=== PATIENT | male | born 2000 | race African-American/Black ===

== ENCOUNTER 2024-05-05 02:38 | Inpatient (IN) | payer OTHER, SELFPAY ==
[2024-05-05] VITALS (10 sets, daily range): BP systolic 91–129; BP diastolic 50–72; BMI 27.4; BMI 26.5
[2024-05-05] MEDS: LOW STRENGTH ASPIRIN 324 MG PO (00:34)
--- NOTE | 2024-05-05 00:34 | ED.GENMED ---
History of Present Illness
General
Chief Complaint: Chest Pain
Source: patient and family
Exam Limitations: none
Time Seen by Provider: 05/05/24 00:34
Nursing documentation reviewed up to this point in time: agreed with
History of Present Illness
History of Present Illness:
Is a 23-year-old male that presents with substernal chest pain radiating to his left side. He states that has been progressively worsening for the last 2 days. Mom has been trying to convince him to come to the emergency department but he has
since used prior to night. Patient did have an upper respiratory infection which has been resolving. Patient denies fever, chills, nausea or vomiting. He does not smoke, drink alcohol, or illicit drugs. Patient denies any family cardiac history.
Patient does not have hypertension or hyperlipidemia. Patient has been getting over URI and has taken Sudafed yesterday for his symptoms.
Vital signs are stable. Patient not hypoxic
Nursing note reviewed. I agree with nursing documentation up to this point in time.
Home Meds and allergies reviewed.
NUMBER AND COMPLEXITY OF PROBLEMS ADDRESSED AT THE ENCOUNTER
� Chronic conditions affecting care: None
� Acute Exacerbation and/or Progression of Chronic Illness:
� Differential Diagnosis includes: High lateral ST elevation PR, pericarditis, myocarditis, effusion
AMOUNT AND/OR COMPLEXITY OF DATA TO BE REVIEWED AND ANALYZED
I performed an independent evaluation of the following and my interpretation is:
EKG: EKG shows sinus rhythm rate of [address] elevations in the high lateral leads (I, aVL). There are reciprocal changes in III and aVF.
CT:
X-rays:
Ultrasound: Bedside ultrasound showed normal motility of the heart, performed by Dr. Sarah
Laboratory Studies: Normal white blood cell count
Other:
Review of other/old records: No previous ER visits
Clinical information was obtained by an independent historian:
Prescriptions/Medications Considered but not given:
Further testing considered but not performed:
RISK OF COMPLICATIONS AND/OR MORBIDITY OR MORTALITY OF PATIENT MANAGEMENT
Social determinants of health affecting care: Good Social Support, mom present at the bedside
Discussion with other providers:
Escalation of care including admission/observation vs risk of discharge considered:
CRITICAL CARE NOTE:
Total Time (exclusive of procedures):
Update:
Phy Exam
Physical Exam
Physical Exam:
Physical Exam
Vital signs and allergy list reviewed and agreed with.
GENERAL: Alert , in moderate apparent distress, diaphoretic
EYE: pupils equal, EOMI, anicteric
NECK: Supple, no significant adenopathy. No masses. Trachea midline
ENT: Oropharynx is clear, mmm.
CARDIAC: Regular rate and rhythm . No M/R/G
LUNGS: Clear breath sounds bilaterally, no acute respiratory distress, no wheezes/rales/rhonchi
ABDOMEN: Soft, without focal tenderness, no r/g,
NEUROLOGICAL: Alert and oriented, no focal neuro deficits
SKIN: Warm and diaphoretic, skin intact.
MUSCULOSKELETAL: No edema, well perfused. Moves all 4 extremities
PSYCH: Normal and appropriate interaction.
Scores
Heart Score for Chest Pain Patients
STEMI patient?: Yes
Course
Orders/Labs/Results
Orders:
Orders
05/05/24 00:20
EKG [Electrocardiogram (*1)] Urgent
Reason for Study: Chest Pain
EKG- Treatment ONCE
05/05/24 00:32
Complete Blood Count/With Diff Urgent
Comprehensive Metabolic Panel Urgent
PTT Urgent
TSH Reflex To Free T4 Urgent
Troponin I Urgent
05/05/24 00:33
Aspirin Chewable [Low Strength Aspirin] 324 mg PO NOW STA
Portable Chest Xray [CR Chest Portable - 1 View] Urgent
Comment:
Reason For Exam: cp
Reason Study Needs to be Portable: Patient Unstable
05/05/24 00:53
Verapamil Injectable [Isoptin/Verapamil Injection] 5 mg .ROUTE .STK-MED ONE
05/05/24 00:54
Fentanyl Citrate/Pf [Sublimaze] 100 mcg .ROUTE .STK-MED ONE
Heparin 10,000 units .ROUTE .STK-MED ONE
Heparin 1000 Units/500 ml [Heparin] 1,000 units in 500 ml .ROUTE .STK-MED
Heparin Sodium,Porcine/Ns/Pf [Heparin 2000 Units/1000 ml] 2,000 unit in 1,000 ml .ROUTE .STK-MED
Lidocaine HCl/Pf [Xylocaine-Mpf 1% Vial] 100 mg .ROUTE .STK-MED ONE
Midazolam HCl [Versed] 2 mg .ROUTE .STK-MED ONE
Nitroglycerin [Tridil] 1,500 mcg .ROUTE .STK-MED ONE
05/05/24 01:00
CRP [C-Reactive Protein] Urgent
ESR [Erythrocyte Sed Rate] Urgent
Influenza A+B Rapid Molecular Urgent
RADHA Source: Nasal Swab
Specimen Description:
05/05/24 01:01
COVID-19 Antigen Urgent
Source: Nasal Swab
05/05/24 01:33
Heparin 10,000 units .ROUTE .STK-MED ONE
05/05/24 02:23
Code Status As Directed
Resuscitation Status: Full Code
Acetaminophen [Tylenol] 650 mg PO Q4HPRN PRN
Activity As Directed
Activity Level: Out of Bed- Ad Fifi
Activity Frequency: Ad Fifi
Office Director Procedure As Directed
Cardiac Cath Procedure: cardiac catheterization
Notify MD As Directed
Notify physician if: immediately for chest pain or bleeding from access site(s)
Radial Artery Hemostasis Method As Directed
Instructions:: 3 mL out at 1 hour post placement of band
3 mL out at 1 1/2 hours post placement of band
3 mL out at 2 hours post placement of band
Off at 2 1/2 hours post placement of band
If any oozing or hemotoma occurs:: re-inflate band and call provider
Site Checks As Directed
Check access site for bleeding/hematoma: Yes
Comment: on arrival, Q15min x4, Q30min x2, Q1 hr x2, Q2 hr x2, Q4 hr or per
protocol
Vascular Checks As Directed
Location: distal to access site - pulse check
Frequency: Other
Comment: on arrival, Q15min x4, Q30min x2, Q1 hr x2, Q2 hr x2, Q4 hr or per protocol
Vital Signs As Directed
Frequency: Other
Additional Instructions:: on arrival, Q15min x4, Q30min x2, Q1 hr x2, Q2 hr x2, then Q4 hr or per unit
protocol
DX Deep Vein Thrombosis Video Routine
05/05/24 02:33
Admit Patient As Directed
Co-Sign Provider:
Level of Care: Inpatient admission
Assign to:: IVU
Physician / Group: DCA
Diagnosis: NSTEMI
Reason for Hospitalization: URI/Chest Pain
Expected length of stay greater than two midnights?: Yes
ELOS- Estimated Length of Stay in days: 2
I certify the patient meets the requirements for IP care: Yes
PRN Pain Medication Management As Directed
May give lesser potent ordered pain med per pt: Yes
preference::
Protocol:: Medication orders for pain may be administered in a
manner that supports deferring to patient preference
when the pt is:
- Requesting an ordered lesser potent pain medication.
Least to most potent pain medications are defined
as: acetaminophen < NSAID < tramadol < opioids
(morphine, oxycodone, hydromorphone).
- Requesting a lesser dose of the same medication IF
ORDERED.
- Requesting a less intrusive route of administration
if both routes are prescribed by the provider (PO <
IV).
05/05/24 02:34
Activity As Directed
Activity Level: Out of Bed-Early Mobility
Intake/ Output As Directed
Frequency: Per unit guidelines
Precautions As Directed
Type of Precautions: Novel Respiratory
Weight As Directed
Frequency: Once
Comment: on admission
05/05/24 03:00
Flush (0.9% Sodium Chloride) [Flush (Nss)] See Dose Instructions IV PER PROTOCOL
05/05/24 03:03
Cardiovascular Evaluation IN AM
Troponin I Q8H
05/05/24 10:30
Troponin I Q8H
05/05/24 18:00
Enoxaparin Sodium [Lovenox] 40 mg SC QPM
05/05/24 18:30
Troponin I Q8H
05/06/24 02:30
Electrocardiogram (*1) DAILY
Reason for Study: Chest Pain
Abnormal Lab Results
05/05/24 05/05/24
00:32 01:00
RBC 4.42 L 10^6/uL
(4.70-6.10)
Hgb 11.8 L g/dL
(13.0-18.0)
Hct 34.2 L %
(39.0-52.0)
MCV 77.4 L fL
(80.0-94.0)
MCH 26.7 L pg
(27.0-31.0)
Absolute Monos (auto) 0.9 H 10^3/uL
(0.1-0.6)
Lymphocytes % 18.5 L %
(20.5-51.1)
Monocytes % 11.0 H %
(1.7-9.3)
ESR 36 H mm/hour
(0-20)
APTT 37.2 H Sec
(23.4-35.0)
Glucose 110 H mg/dl
(70-99)
AST 158 H U/L
(17-59)
ALT 52 H U/L
(0-50)
Troponin I 24.400 H* ng/ml
C-Reactive Protein 204.50 H mg/L
(0.0-10.00)
05/05/24 00:32
05/05/24 00:32
Vital Signs
Initial and Last Documented VS:
Initial Vital Signs
BP
129/72
05/05/24 00:27
Last Documented Vital Signs
Temp Pulse Resp BP Pulse Ox
97.7 F 97 16 101/58 93
05/05/24 02:20 05/05/24 01:15 05/05/24 02:20 05/05/24 01:00 05/05/24 02:20
*Critical Care Note
Total Time (30-74mins, 75-104mins- exclusive of procedures): 35 ( Critical care statement: A total of 35 minutes of critical care time was provided for this patient. This time is separate from time utilized to perform the aforementioned documented
procedures. Aggregate critical care time includes only time during which I was engaged in work directly related to)
ED Attending Note
-
Portions of this chart may have been created with voice recognition software.� Occasional wrong word or��sound alike� substitutions may have occurred due to the inherent limitations of voice recognition software.
Discharge Plan
Departure
Patient Disposition: Admit
Admit to: IVU
Presentation/result/management discussed w/ accepting MD/DO: Dr. Sarah, oil field operator
Condition: Fair
Discharge Problem:
ST elevation (STEMI) myocardial infarction, Pericarditis, Chest pain
Interventions
Interventions:
*Risk Screen - Suicide Last Done: 05/05/24 00:25
*General Assessment Last Done: 05/05/24 00:25
*Neglect/Abuse Screening Last Done: 05/05/24 00:25
*ED COVID-19 Vaccine History Last Done: 05/05/24 00:30
*Nursing Disposition Last Done: 05/05/24 01:55
ED- Cardiac Assessment Last Done: 05/05/24 00:37
Discharge Date and Time
Discharge Date/Time: 05/05/24 01:56
[2024-05-05 00:42] LABS: % Basophils 0.2 % (0-2); % Eosinophils 1.5 % (0-6); % Immature Granulocytes 0.4 % (0-0.5); % Lymphocytes 18.5 % (20.5-51.1); % Neutrophils 68.4 % (42.2-75.2); Absolute Eosinophils 0.1 10^3/uL (0-0.7); Absolute Lymphocytes 1.6 10^3/uL (1.2-3.4); Absolute Monocytes 0.9 10^3/uL (0.1-0.6); Absolute Neutrophils 5.9 10^3/uL (1.4-6.5); Hematocrit 34.2 % (39.0-52.0); Hemoglobin 11.8 g/dL (13.0-18.0); Mean Corp Hgb Conc. 34.5 g/dL (33.0-37.0); Mean Corpuscular Hgb 26.7 pg (27.0-31.0); Mean Corpuscular Volume 77.4 fL (80.0-94.0); Mean Platelet Volume 10.4 fL (7.4-10.4); Nucleated Red Blood Cells % 0 % (-); Platelet Count 191 10^3/uL (130-400); Red Blood Cell Count 4.42 10^6/uL (4.70-6.10); Red Cell Dist. Width 13.1 % (11.5-14.5); White Blood Cell Count 8.6 10^3/uL (4.8-10.8)
--- NOTE | 2024-05-05 00:42 | EDRN ---
attempted to go over pt home medications with patient and mother at bedside, pt and mother report that pt is on a maintenance inhaler for his asthma and a medication for his acne that they are unsure of the name or dosage, pt also reports having
albuterol at home for rescue inhaler
[2024-05-05 00:52] LABS: APTT 37.2 Sec (23.4-35.0)
[2024-05-05 01:15] LABS: ALT (SGPT) 52 U/L (0-50); AST (SGOT) 158 U/L (17-59); Albumin 3.9 g/dl (3.5-5.0); Alkaline Phosphatase 77 U/L (38-126); Blood Urea Nitrogen 18 mg/dl (9-20); Calcium 9.1 mg/dl (8.4-10.2); Carbon Dioxide 23 mmol/L (22-30); Chloride 99 mmol/L (98-107); Estimated Creatinine Clearance 82 ml/min; Glucose 110 mg/dl (70-99); Potassium 3.8 mmol/L (3.5-5.1); Sodium 139 mmol/L (135-145); Total Bilirubin 0.6 mg/dl (0.2-1.3); eGFR > 60.00
[2024-05-05 01:26] LABS: TSH Reflex To Free T4 1.25 uIU/ml (0.47-4.68)
[2024-05-05 01:32] LABS: COVID-19 Antigen Negative (Negative)
[2024-05-05 01:54] LABS: Erythrocyte Sed Rate 36 mm/hour (0-20)
--- NOTE | 2024-05-05 02:16 | ITS.CL.CATH ---
Technical Editor - Catheterization
Cardiac Catheterization
Procedure Report:
LEFT HEART CATHETERIZATION
Date of Procedure: May 05, 2024
Referring: [facility] emergency department
PROCEDURES:
1. Left heart catheterization, coronary angiogram.
2. Ultrasound-guided access
INDICATION: Mr. Daniel is a 23-year-old gentleman with past medical history of asthma, non-smoker who presents with 24-hour history of substernal chest pressure associated with shortness of breath found to have ST elevations in lateral leads on EKG
for which STEMI team was activated urgently. Over the last 4 to 5 days patient has been not feeling well with a upper respiratory infection and starting yesterday he was not able to sleep well due to acute onset of substernal chest discomfort,
nonradiating, nonexertional with a pleuritic component. No positional changes. No alleviating or exacerbating factors. Stat bedside echocardiogram showed overall normal left ventricular systolic function without obvious wall motion abnormalities.
Initial troponin resulted at 24.
ACCESS: Right radial artery, 6 Uzbek sheath, under ultrasound guidance.
HEMODYNAMICS : (mmHg)
AO (s/d) : 92/57
LV (s/d) : 94/15
LVEDP : 29
CORONARY FINDINGS
DOMINANCE: Codominant
LEFT MAIN: The left main artery is a large-caliber vessel which gives rise to the left anterior descending artery and the left circumflex artery. Normal coronary artery.
LEFT ANTERIOR DESCENDING: The left anterior descending artery is a large-caliber vessel which gives rise to 1 major diagonal branch and multiple small caliber diagonal branches as it courses through the anterior interventricular groove and wraps
around the apex. Normal coronary artery.
CIRCUMFLEX: The left circumflex artery is a medium caliber, codominant vessel which gives rise to multiple small caliber obtuse marginal branches and a small LPDA. Normal coronary arteries
RIGHT CORONARY ARTERY: The right coronary artery is a medium caliber vessel which gives rise to the right posterior descending artery. Normal coronary artery.
SEDATION: 36 minutes of procedural sedation was utilized. An independent medical center director was present to assist with and help manage the patient's level of consciousness and physiologic status.
RADIATION SUMMARY: Fluoro Time (min): 13.0, Dose (mGy): 491.8, DAP (Gy.cm2) : 37.5
Closure Device: Vascular band over right radial artery, 10 cc of air.
CONCLUSIONS
1. No obstructive coronary artery disease.
2. Elevated LVEDP at 29 mmHg.
RECOMMENDATIONS
1. Wean radial band per protocol.
2. Full echocardiogram to assess biventricular function.
3. Trend troponins and EKGs.
4. Defer workup and management of URI to medicine.
5. Depending on further information, may need to consider additional imaging such as a cardiac MRI versus CTA of chest.
Michelle Sarah MD, FACC, [facility]
--- NOTE | 2024-05-05 02:25 | CON.CAR ---
Consultation
Consultation Request
Date/Time Consultation Requested: 05/05/24
Date/Time Consultation Performed: 05/05/24
Requesting Provider: Soheila Patrick
Performing Provider: Michelle Sarah
Reason for Consultation: Chest Pain
Medical History
-
Chief Complaint: URI, CP
History of Present Illness:
Mr. Daniel is a 23-year-old gentleman with past medical history of asthma, non-smoker who presents with 24-hour history of substernal chest pressure associated with shortness of breath found to have ST elevations in lateral leads on EKG for which
STEMI team was activated urgently. Over the last 4 to 5 days patient has been not feeling well with a upper respiratory infection and starting yesterday he was not able to sleep well due to acute onset of substernal chest discomfort, nonradiating,
nonexertional with a pleuritic component. No positional changes. No alleviating or exacerbating factors. Stat bedside echocardiogram showed overall normal left ventricular systolic function without obvious wall motion abnormalities. Initial
troponin resulted at 24. He was taken urgently to the heart catheterization lab after informed consent with heart catheterization showing no obstructive CAD.
Past Medical History
Past Medical History: Asthma
Past Surgical History: None
Social History
Tobacco: Non-Smoker
Alcohol: None
Drug: None
Personal: Single (At home with family)
Living: With Family
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
Family History
Family History: Reviewed & Not Pertinent
Allergies / Home Medications
Allergy/AdvReac Type Severity Reaction Status Date / Time
No Known Allergies Allergy Unverified 05/05/24 00:25
�Medication �Instructions �Recorded �Confirmed �Type
Unobtainable 05/05/24 05/05/24 History
Review of Systems
-
All other systems: Negative unless noted
Physical Exam
Vital Signs
Pulse Resp BP Pulse Ox
97 18 101/58 98
05/05/24 01:15 05/05/24 01:15 05/05/24 01:00 05/05/24 01:00
Lab Results
05/05/24 00:32
05/05/24 00:32
Troponin I 24.400 ng/ml H* 05/05/24 00:32
Physical Exam
General: Well Developed and Well Nourished
HEENT: Moist Mucous Membranes
Respiratory: Other (Mildly decreased breath sounds at the bases)
Cardiac: S1/S2; Negative Murmur or Rub
GI: Soft, Non Tender, Non Distended and Normal Bowel Sounds
Musculoskeletal: No Clubbing, No Cyanosis and No Edema
Skin: Warm and Dry
Neuro: Awake, Alert and AO x 3
Psych: Calm
Impression / Plan
-
No outpatient broadcast engineer
RECOMMENDATIONS:
1. Unclear etiology of presenting ECG changes and troponin elevation: No obstructive coronary artery disease noted on heart catheterization. No obvious evidence of Takotsubo by echocardiogram or scad on heart catheterization. Differential
includes possible pericarditis/myocarditis versus possible PE. CRP significantly elevated over 200. Urgent limited echocardiogram in the emergency department with overall normal LV systolic function, no significant pericardial effusion. Trend
troponins and EKGs. Depending on trends and clinical status, may need to consider additional imaging such as cardiac MRI versus CTA of chest.
2. Defer workup and management of URI and abnormal LFTs to medicine.
3. Continue to monitor on telemetry for now.
Michelle Sarah MD, [facility], [facility]
Data Reviewed
-
EKG: Tracing Personally Visualized and interpreted
Radiology: Report Reviewed by me
Medical Tests (Nuc Med, Echo etc): Image Personally Visualized and interpreted
Labs: Labs Reviewed by me
--- NOTE | 2024-05-05 03:18 | PTCARENOTE ---
Pt admit to IVU ~0220. R radial band intact. No oozing, no hematoma. Surrounding site soft. R hand warm. SPO2 93-94% on R hand. Pt belongings w/ pt. Pt's mom and other relative at bedside.
[2024-05-05 03:32] LABS: HDL Cholesterol 12 mg/dl; LDL Cholesterol, Calculated 66 mg/dl; Total Cholesterol 118 mg/dl (50-199); Triglyceride 202 mg/dl (10-149); Very Low Density Lipoprotein 40 mg/dl (0-30)
--- NOTE | 2024-05-05 05:03 | HPS.HSE ---
Family Physician
-
Family Physician: Rodney Moran
Chief Complaint
-
Chest pain
History of Present Illness
This is a 23-year-old male with no known past medical history presenting to the emergency department with 2 days of substernal chest pressure according to the mother and verified by the patient.
Patient seen after the patient had gone to the cardiac cath. Had been given fentanyl and was somewhat somnolent but arousable and communicative. Mother provided most of the history.
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 He reports that for about 5 days he has had upper respiratory infection symptoms with cough cold flulike symptoms. Some sore throat. He did not take himself for
COVID-19. He reported that he took cold medicines including Sudafed and DayQuil. He also has prior history of asthma but has no recent exacerbations and denies any coughing or wheezing. For 2 days he started complaining to mother about difficulty
breathing with exertion. He states sometimes he cannot catch his breath. Use of inhaler did not improve his symptoms. He reports that he is having substernal chest pain/pressurel as if somebody sitting on his chest. He denies any pleuritic
symptoms. He has no recent travels. He denies any known sick contacts. Patient denies any family history of early CAD, denies family history of cardiomyopathy or sudden . Denies family history of arrhythmias. Patient denies any family
history of inflammatory diseases.
In the ED he was afebrile hemodynamically stable not requiring oxygen. Also complaining of chest pressure. ECG shows T wave inversions in lead III, ST elevations in V1 V2, V V4 through V6. Initial troponin was 0.4. Chest x-ray was clear.
Patient received aspirin 324 mg. He received a bolus of heparin and was taken to the [facility]. There was no obstructive coronary artery disease, no obvious evidence of Takotsubo by echocardiogram or coronary artery dissection on heart
catheterization.
Medical History
Past Medical History
Past Medical History: Reports Asthma
Past Surgical History: Reports None
Social History
Tobacco: Non-smoker
Alcohol: None
Drug: None
Personal: Single
Living: With Family
Employment: Employed
Family History
Family History: Other (Aneurysm in Grand mother)
Allergies / Home Medications
Allergies reflects when Allergies were last updated in [facility].
Home Medications with original date entered in [facility]
Allergy/Medication List:
Allergies
Allergy/AdvReac Type Severity Reaction Status Date / Time
No Known Allergies Allergy Unverified 05/05/24 00:25
Home Medications
NONE 05/05/24
Review of Systems
-
History Source: Patient
Constitutional: Reports No Symptoms
EENT: Reports No Symptoms
Respiratory: Reports No Symptoms
Cardiac: Reports Chest Pain and Diaphoresis
Abdomen/GI: Reports No Symptoms
: Reports No Symptoms
Musculoskeletal: Reports No Symptoms
Skin: Reports No Symptoms
Neurological: Reports No Symptoms
Endocrine: Reports No Symptoms
Hematologic/Lymphatic: Reports No Symptoms
Psych: Reports No Symptoms
Physical Exam
Vital Signs
Vital Signs
Pulse Resp BP Pulse Ox
97 18 101/58 98
05/05/24 01:15 05/05/24 01:15 05/05/24 01:00 05/05/24 01:00
Physical Exam
General: Well Developed, Well Nourished and Comfortable
HEENT: NormoCephalic, Anicteric, Moist mucous membranes, Atraumatic, PERRLA and Oxygen (hypoxia with sleeping (snoring))
Respiratory: Clear and Non Labored Respirations
Cardiac: S1/S2 and Regular Rhythm
Breast: Deferred by me
GI: Soft, Non Tender, Non Distended and Normal Bowel Sounds
Rectal: Deferred by Provider
Genito-urinary: Deferred by me
Musculoskeletal: No Clubbing, No Cyanosis and No Edema
Skin: Warm
Neuro: AO x 3
Psych: Calm
Laboratory Results
-
05/05/24 00:32
05/05/24 00:32
Laboratory Results
APTT 37.2 Sec (23.4-35.0) H 05/05/24 00:32
Total Bilirubin 0.6 mg/dl (0.2-1.3) 05/05/24 00:32
AST 158 U/L (17-59) H 05/05/24 00:32
ALT 52 U/L (0-50) H 05/05/24 00:32
Alkaline Phosphatase 77 U/L (38-126) 05/05/24 00:32
Troponin I 31.500 ng/ml H* D 05/05/24 03:03
Data Reviewed
-
Diagnostic Radiology: Image Personally Visualized and interpreted
Medical Tests (Nuc Med, Echo, EKG etc): Image Personally Visualized and interpreted
Lab Data: Labs Reviewed by me
Old Records: Reviewed
Impression/Plan
-
IMPRESSION:
NSTEMI
23-year-old with symptoms of left typical chest pain (2 days of chest pressure, elevated troponin and ECG with ST changes in the lateral leads as well as in anterior lead. He is status post catheter showing no obstructive coronary artery disease,
no coronary artery dissection, no Takotsubo, normal LV systolic function, no significant pericardial effusion. Repeat troponin is trending up. Patient currently comfortable status post sedation and IV fentanyl in the [facility]. In the absence of
the aforementioned coronary artery disease, dissection of the possible differential includes myocarditis (infectious vs inflammatory), pericarditis (markedly elevated PE), coronary spasms (unlikely) and infiltrative diseases. Given history,
post-infectious myocarditis is a significant concern. COVID test was negative. No recent immunizations.
- admit to ivu
- trending troponins
- check bnp, formal echocardiogram
- check serologies for lupus and RA
- not hypoxic at baseline but concern remains for PE. Obtain CT PE
- possible cardiac mri per cardiology
Transamintiis - Mild LFT anomalies
- possibly post viral versus muscular injury. Acute hepatitis panel, RUQ u/s, check cpk
- lipid panel is ok
- trend for now
Sleep apnea - hypoxia when sleeping. Snoring. C/W EROS
- oxygen hs prn
DVT PPX - lovenox sq
Code Status - Full
ADDENDUM
- CT PE - Severe bronchial wall thickening in both lungs suggesting SEVERE BRONCHITIS.
2. Moderate airspace opacity in the right lower lobe and mild airspace opacity in the left lower lobe most consistent with MODERATE RIGHT LOWER LOBE and MILD LEFT LOWER LOBE PNEUMONIA.
3. Small bilateral pleural effusions.
4. Mild bilateral hilar and subcarinal lymphadenopathy.
Started Ceftriaxone and azithromycin for multifocal CAP/severe bronchitis.
Albuterol inh q 6 hours
May need pulmonary consultation
--- NOTE | 2024-05-05 06:36 | PTCARENOTE ---
R radial band off 0530. Site CDI, soft, no hematoma. Pt extremely diaphoretic - afebrile. Taken down for chest CT, on the way back to room pt felt nauseous - no vomit. CP remains unchanged, only a 2-3 out of 10 with deep inspiration.
[2024-05-05] MEDS: FLUSH (NSS) 2 FLUSH IV (08:23)
[2024-05-05] MEDS: STERILE WATER FOR INJECTION 10 ML IV ×2 (08:23→16:29)
[2024-05-05] MEDS: ROCEPHIN 1000 MG IV ×2 (08:23→16:29)
--- NOTE | 2024-05-05 09:06 | PTCARENOTE ---
Received patient this morning resting in bed, appears fatigued and complaining of chills. Still having chest pain he describes as a heavy feeling, sharp and increased with inspiration, rated 7/10 but declined ordered prn IV dilaudid at this time.
98% on RA, breathing very shallow and decreased, temp 99.3. Given first dose of IV rocephin, family at the bedside and updated.
[2024-05-05] MEDS: ZITHROMAX INFUSION 250 IV (11:15)
[2024-05-05] MEDS: MOTRIN 600 MG PO ×3 (11:15→22:51)
[2024-05-05] MEDS: COLCHICINE 0.6 MG PO ×2 (11:15→20:08)
--- NOTE | 2024-05-05 11:37 | CON.PUL ---
Consultation
Consultation Request
Date/Time Consultation Requested: 05/05/24
Date/Time Consultation Performed: 05/05/24
Performing Provider: Kathy
Reason for Consultation: PNA
Medical History
-
History of Present Illness:
Patient is a 23-year-old male with past medical history of asthma presenting to the emergency department with 2 days of substernal chest pressure. Had upper respiratory infection symptoms x 5 days, including cough/sore throat. Developed SAMUEL over
the past 2 days which was not relieved with inhalers. He then reported substernal chest pain, described as 'somebody sitting on his chest.' He denies any pleuritic symptoms. Patient denies any family history of early CAD, denies family history of
cardiomyopathy or sudden . Denies family history of arrhythmias.
In ER, ECG shows T wave inversions in lead III, ST elevations in V1 V2, V V4 through V6. Initial troponin was 0.4. Chest x-ray was clear. Given ASA and heparin bolus.
Patient then underwent emergent cardiac cath. There was no obstructive coronary artery disease, but elevated LVEDP noted at 29 mmHg. No obvious evidence of Takotsubo by ECHO.
CT showing bibasilar infiltrates suspicious for PNA.
Family states no exposure history, no travel/sick contacts, no inhalation exposures including smoking/vaping.
COVID tested negative on admission.
Past Medical History
Past Medical History: Other (see list below)
Social History
Tobacco: Non-smoker
Alcohol: None
Drug: None
Family History
Family History: Reviewed & Not Pertinent
Allergies / Home Medications
Allergies
Allergy/AdvReac Type Severity Reaction Status Date / Time
No Known Allergies Allergy Unverified 05/05/24 00:25
Home Medications
�Medication �Instructions �Recorded �Confirmed �Last Taken �Type
Unobtainable 05/05/24 05/05/24 Unknown History
Review of Systems
-
History Source: Patient
All other systems: Negative unless noted
Vitals / Labs / Diagnostic Testing
Vital Signs
Temp Pulse Resp BP Pulse Ox
99.8 F 89 16 111/65 98
05/05/24 08:30 05/05/24 08:45 05/05/24 08:00 05/05/24 08:39 05/05/24 08:48
Laboratory Results
05/05/24
00:32
APTT 37.2 H
Microbiology
05/05/24 01:00 Nasal Swab Influenza Types A & B (ANN) - Final
Negative for Influenza A & B, NAAT
Negative results must be combined with clinical observations
and patient history.
Nucleic Acid Amplification test (NAAT)performed on the
[employer] platform.
Diagnostic Testing:
Physical Exam
-
HEENT: Normocephalic, Anicteric and Moist Mucous Membranes
Cardiovascular: S1/S2 and Regular Rhythm
Respiratory: Clear and Non-Labored Respirations
GI: Soft, Non Distended and Non Tender
Neurology: Awake, Alert and No Motor Deficits
Skin: Warm and Good Color
General: Other (fatigued, diaphoretic)
Assessment
-
Patient is a 23-year-old male with past medical history of asthma presenting to the emergency department with 2 days of substernal chest pressure. Had upper respiratory infection symptoms x 5 days, including cough/sore throat. Developed SAMUEL over
the past 2 days which was not relieved with inhalers. He then reported substernal chest pain, described as 'somebody sitting on his chest.' In ER, ECG shows T wave inversions in lead III, ST elevations in V1 V2, V V4 through V6. Initial troponin
was 0.4. Chest x-ray was clear. Given ASA and heparin bolus. Patient then underwent emergent cardiac cath. There was no obstructive coronary artery disease, but elevated LVEDP noted at 29 mmHg. No obvious evidence of Takotsubo by ECHO. CT showing
bibasilar infiltrates suspicious for PNA. We are consulted for eval.
Bilateral infiltrates on CT
Pleuritic chest pain/SOB
EKG changes/ST seg elevation suspect viral pericarditis/myocarditis
Elevated inflammatory markers
Suspected viral myocarditis
Generalized weakness
Fever
Conditions present BAKER SECOND
Asthma
Plan
No oxygen was needed on admission, currently saturating >90% on RA
Prior history of asthma noted, but this is generally well controlled on albuterol PRN, which is rarely needed
Family states no exposure history, no travel/sick contacts, no inhalation exposures including smoking/vaping.
COVID tested negative on admission.
CXR/CT obtained indicating bibasilar infiltrates by appearance suggestive of PNA, no prior for comparison
Unable to produce sputum
Fevers ongoing
Will check blood cultures, procal, lactic acid, urine strep/legionella
COVID and Flu negative
Agree with empiric abx
Cardiac testing reviewed including LHC and ECHO
Cardiac MRI showing acute myocarditis
Placed on colchicine
Can consider steroid treatment if not improving
Will obtain autoimmune w/u given inflammatory marker elevation
Updated family on plan of care, all at bedside
We will follow
Diagnostic Data
Chest X-Ray: 05/05/24- IMPRESSION: No acute pulmonary process identified radiographically.
Cardiac MRI 05/05/24- 1. SEVERE ACUTE MYOCARDITIS with a large amount of left ventricular wall enhancement which is mostly located in the inferior and lateral rodrigues of the left ventricle.
2. Mild acute pericarditis with a small pericardial effusion.
3. Global systolic LV function: Mildly impaired.
4. Global systolic RV function: Normal.
5. Valvular disease: None.
6. SEVERE RIGHT and MODERATE LEFT LOWER LOBE PNEUMONIA.
7. Small bilateral pleural effusions.
CT Scan: CHEST 05/05/24- 1. Severe bronchial wall thickening in both lungs suggesting SEVERE BRONCHITIS.
2. Moderate airspace opacity in the right lower lobe and mild airspace opacity in the left lower lobe most consistent with MODERATE RIGHT LOWER LOBE and MILD LEFT LOWER LOBE PNEUMONIA.
3. Small bilateral pleural effusions.
4. Mild bilateral hilar and subcarinal lymphadenopathy.
[facility] 05/05/24- CONCLUSIONS
1. No obstructive coronary artery disease.
2. Elevated LVEDP at 29 mmHg.
PFT's:
Reports and relevant images were personally reviewed.
Total time spent on this consultation __75__ includes review of history, physical exam, medications, laboratory data, personal review of imaging, extensive review of outpatient records, discussion with care team and respiratory therapy.
[2024-05-05 11:41] LABS: Hematocrit 36.7 % (39.0-52.0); Hemoglobin 12.6 g/dL (13.0-18.0); Mean Corp Hgb Conc. 34.3 g/dL (33.0-37.0); Mean Corpuscular Hgb 27.2 pg (27.0-31.0); Mean Corpuscular Volume 79.1 fL (80.0-94.0); Mean Platelet Volume 10.1 fL (7.4-10.4); Platelet Count 188 10^3/uL (130-400); Red Blood Cell Count 4.64 10^6/uL (4.70-6.10); Red Cell Dist. Width 13.2 % (11.5-14.5); White Blood Cell Count 10.5 10^3/uL (4.8-10.8)
--- NOTE | 2024-05-05 11:47 | PTCARENOTE ---
Patient seen by cardiology, given ordered motrin and colchicine. Patient more conversant with staff, family. Started dose of IV zithromaxin but called for cardiac MRI. Family waiting in the room.
[2024-05-05 11:54] LABS: ALT (SGPT) 50 U/L (0-50); AST (SGOT) 182 U/L (17-59); Albumin 3.6 g/dl (3.5-5.0); Alkaline Phosphatase 78 U/L (38-126); Blood Urea Nitrogen 15 mg/dl (9-20); Calcium 8.9 mg/dl (8.4-10.2); Carbon Dioxide 26 mmol/L (22-30); Chloride 102 mmol/L (98-107); Direct Bilirubin 0.2 mg/dl (0.0-0.4); Estimated Creatinine Clearance 98 ml/min; Glucose 97 mg/dl (70-99); Potassium 4.5 mmol/L (3.5-5.1); Sodium 140 mmol/L (135-145); Total Bilirubin 0.8 mg/dl (0.2-1.3); Total Protein 6.8 g/dl (6.3-8.2); eGFR > 60.00
--- NOTE | 2024-05-05 12:02 | W.PN.CARDCBS ---
Addendum entered and electronically signed by Michelle Sarah MD 05/05/24 13:14:
I saw and examined the patient.
The Gate Watchman's note was reviewed and I agree with the note.
Comment: Overall patient remained stable from overnight. He continues to have ongoing upper respiratory symptoms associated with cough and low-grade fevers this morning.
Vital signs and lab work reviewed. Blood pressures are borderline low. On exam patient is ill-appearing but in no acute distress, moist mucous membranes, tachycardic, normal S1 and S2, no pericardial rub, murmurs or gallops, decreased breath
sounds at bilateral bases, abdomen is soft, nontender with active bowel sounds, right radial cath site is dressed with dressing which is clean, dry and intact, warm extremities.
Workup so far revealed negative COVID panel as well as negative influenza. Though chest x-ray was not suggestive of a possible pneumonia, CT chest was completed overnight which shows concern for multifocal pneumonia and antibiotics have been
initiated.
ECG this morning showing diffuse ST elevations, most consistent with pericarditis.
Troponins peaked at 31
Recommendations:
1. Clinical picture is most consistent with myopericarditis in the setting of recent viral illness, no obstructive coronary artery disease noted on heart catheterization last night, ST changes on EKG and elevated troponins.
2. We will pursue a cardiac MRI inpatient with order placed this morning.
3. We will initiate anti-inflammatory therapy with ibuprofen 600 mg 3 times daily along with colchicine 0.6 mg twice daily. In general discussed with family would expect chest discomfort to improve within 48 to 72 hours with eventual plan for a
2-week taper for NSAIDs and likely continuation of colchicine for 3 months.
4. Defer management of pneumonia and bronchitis to primary team who will be getting input from ID as well as pulmonary medicine.
5. Of note, LVEDP was elevated at 29 mmHg on heart catheterization. Currently does not complain of symptoms consistent with decompensated heart failure however we will have a low threshold for intermittent low-dose diuretics as needed.
Discussed all of the above with primary team and nursing at bedside. Also discussed with family at bedside and answered all of their questions.
Michelle Sarah MD, [facility], [facility]
Original Note:
Today's Communication / Plan
-
for cardiac MRI
ibuprofen/colchicine
follow volume status
treatment of bronchitis/pna per primary service
Impression / Plan
-
Primary Cutting And Splicing Supervisor: none prior to admission
Assessment:
Presentation with CP
Elevated troponin with concern for STEMI on arrival s/p urgent cath with nonobstructive disease, nonischemic myocardial injury from possible felipe/pericarditis
Recent viral illness, covid negative
Bronchitis/PNA on chest CT
Mild transaminitis
Asthma
ECHO 05/05/24: EF preserved, no WMA
Cath 05/05/24: No obstructive CAD, elevated LVEDP 29mmHg
RECOMMENDATIONS:
-Presented with CP in setting of recent viral illness. covid negative. Initial trop 24, peaked at 31.5. s/p stat echo with preserved EF and no RWMA. s/p cath with nonobstructive disease
-chest CT negative for PE but with evidence of severe bronchitis and B/L PNA, treatment per primary service
-CRP >200 and marked CK elevation.
-concern for felipe/pericarditis. started on ibuprofen and colchicine. for cardiac MRI today
-LVEDP by cath 29 and with small b/L effusions on chest CT. proBNP 1310. follow volume status. may require diuresis.
-follow LFTs
Progress Note - Cutting And Splicing Supervisor
Subjective
Date of Service: May 05, 2024
remains with chest discomfort. for cardiac MRI
Objective
Labs:
05/05/24 11:04
05/05/24 11:04
Labs
Hgb 12.6 g/dL (13.0-18.0) L 05/05/24 11:04
Hct 36.7 % (39.0-52.0) L 05/05/24 11:04
Plt Count 188 10^3/uL (130-400) 05/05/24 11:04
APTT 37.2 Sec (23.4-35.0) H 05/05/24 00:32
Sodium 140 mmol/L (135-145) 05/05/24 11:04
Potassium 4.5 mmol/L (3.5-5.1) 05/05/24 11:04
BUN 15 mg/dl (9-20) 05/05/24 11:04
Creatinine 1.0 mg/dL (0.7-1.3) 05/05/24 11:04
Glucose 97 mg/dl (70-99) 05/05/24 11:04
Troponins
05/05/24 05/05/24
00:32 03:03
Troponin I 24.400 H* 31.500 H* D
Vital Signs and I&O:
Vital Signs
Temp Pulse Resp BP Pulse Ox
100.6 F H 102 16 91/57 94
05/05/24 11:37 05/05/24 11:37 05/05/24 11:37 05/05/24 11:37 05/05/24 11:37
Vital Signs
Temp Pulse Resp BP Pulse Ox
100.6 F H 102 16 91/57 94
05/05/24 11:37 05/05/24 11:37 05/05/24 11:37 05/05/24 11:37 05/05/24 11:37
Intake & Output
05/03/24 05/04/24 05/05/24 05/06/24
07:59 07:59 07:59 07:59
Intake Total 240 / 240
Balance 240 / 240
[2024-05-05 12:03] LABS: Creatine Phosphokinase 1284 U/L (55-170)
[2024-05-05 12:05] LABS: NT-proBNP 1310 pg/ml
--- NOTE | 2024-05-05 12:24 | CM ---
CM following for DC planning needs.
Met w/ patient, mother, father and mult. family members at bedside.
Pt. resides w/ mother; is functionally indep. at baseline w/ ADLs, mobility without the use of any assisted device.
Antic. DC plan is for home, no needs.
CM will cont. to follow.
[2024-05-05 12:31] LABS: Hepatitis A IgM Antibody Negative (Negative); Hepatitis B Core Ab, IgM Negative (Negative)
[2024-05-05 12:52] LABS: INR 1.05; LDH 402 U/L (120-246); PT 13.6 Sec (11.4-14.6)
[2024-05-05 14:14] LABS: Glycohemoglobin (HgbA1c) 5.5 % (4.0-5.6)
--- NOTE | 2024-05-05 14:28 | W.PN.HOSP.TC ---
Today's Communication/Plan
-
see outlined plan
Assessment / Plan
Assessment / Plan
Assessment:
Suspected viral myopericarditis
Elevated troponin with concern for STEMI on arrival; s/p urgent cath with nonobstructive disease, nonischemic myocardial injury from possible felipe/pericarditis
- s/p urgent cath with nonobstructive disease, nonischemic myocardial injury from possible felipe/pericarditis; trop peaked 31.5
- recent viral illness
- continue Colchicine and NSAIDs
- follow volume status in case diuretics needed.
- follow for Echo and cardiac MRI results
- follow Cardiology recs
Transaminitis, acute
- likely from viral illness; hep panel pending
- RUQ US: unremarkable
- trend LFTs
Severe bronchitis with bilateral pneumonia on CT
Underlying history of lung issues/asthma since (born 29 weeks)
- continue prn inhalers
- continue Rocephin, Azithromycin
- ID and Pulm consulted
DVT ppx: Lovenox
Code: Full
Anticipated Discharge: > 48 hours
Subjective/Interval History
-
Date of Service: May 05, 2024
reporting chest pain
Objective Data
-
Labs:
Laboratory Results
05/05/24 05/05/24
00:32 11:04
WBC 10.5
Hgb 12.6 L
Hct 36.7 L
Plt Count 188
PT 13.6
INR 1.05
Sodium 140
Potassium 4.5
Chloride 102
Carbon Dioxide 26
BUN 15
Creatinine 1.0
Glucose 97
Calcium 8.9
Total Bilirubin 0.8
AST 182 H
ALT 50
Alkaline Phosphatase 78
Vital Signs:
Vital Signs
Temp Pulse Resp BP Pulse Ox
100.6 F H 102 16 91/57 94
05/05/24 11:37 05/05/24 11:37 05/05/24 11:37 05/05/24 11:37 05/05/24 11:37
I&O
05/04/24 05/05/24 05/06/24
06:59 06:59 06:59
Intake Total 240 / 240
Balance 240 / 240
Physical Exam
-
General: No Apparent Distress
HEENT: Normocephalic and Atraumatic
Respiratory: Negative Wheezes
Cardiac: Regular Rhythm and S1/S2
GI: Soft and Nontender
Musculoskeletal: No Edema
Neuro: AO x 3
Hematologic / Lymphatic: No Lymphadenopathy
Psych: Calm
Data Reviewed
-
Total Time Spent with Patient (in minutes): 42
Labs: Labs Reviewed by me
--- NOTE | 2024-05-05 15:05 | W.PN.UPDATE ---
Update Note
Progress Note Update
I personally performed a history and physical exam of the patient and discussed management with the resident. I reviewed the resident's note and agree with the documented findings and plan of care HPI/CC with the following additions/corrections:
CC: chest pain
HPI:
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 Symptoms first began 5 days prior
to arrival with fevers, chills, myalgias, sore throat, cough and progressed to dyspnea on exertion. No home test for covid. Was vaccinated for COVID x3, doesnt think hes had a booster in the last 2 years. Never known to have covid but generally
didnt test himself when ill in previous years. Then Wednesday night he developed the chest pressure. No pain with a deep breath. No known sick contacts, not around any small children. No travel. No pets or farm animals
On arrival here patient was initially afebrile, later spiking a T to 100.6, bp initially stable intermittently mildly hypotensive, HR 100s, RR teens, wbc 8.6, hgb 11.8, plt 191, no left shift, mild lymphocytopenia, esr 36, d-dimer pending, na 139,
cr 1.2, a1c 5.5, lactic acid pending, ca 9.1, t bili 0.6, ast 158 later increased to 182, alt 52, alk phos 77, ECG shows T wave inversions in lead III, ST elevations in V1 V2, V V4 through V6. Initial troponin was 24 peaked at 31 and now
downtrending. CRP 204, chest x-ray was clear. CT chest PE study: severe bronchitis and pneumonia with hilar adenopathy Taken for Cardiac MRI: severe acute myocarditis. Abd US: no acute process
Past Medical History: Asthma
Past Surgical History: None
Social History
Tobacco: Non-Smoker
Alcohol: None
Drug: None
Personal: Single (At home with family); sexually active with women, 3 lifetime sexual partners, no known history of STIs
Living: With Family
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
Family History
Family History: Reviewed & Not Pertinent
Allergies: NKDA
Homed Medications: none
Physical Exam
Vital Signs
Vital Signs
Pulse Resp BP Pulse Ox
97 18 101/58 98
05/05/24 01:15 05/05/24 01:15 05/05/24 01:00 05/05/24 01:00
Physical Exam
General: Well Developed, comfortable
Respiratory: Clear to ascultation, no rales, wheezes or ronchi
Cardiac: S1/S2 and Regular Rhythm
GI: Soft, Non Tender, Non Distended and Normal Bowel Sounds
: no suprapubic tenderness
Musculoskeletal: No Clubbing, No Cyanosis and No Edema
Psych: Calm
Labs and imaging results reviewed: as documented in HPI
A&P
Myocarditis
- blood cultures x2
- covid pcr; note negative covid antigen, PCR would be more sensitive
- influenza pcr negative
- s pneumo urine antigen in progress
- resp viral panel
- sputum culture
- mrsa screen is pending
- HIV screen - patient gives consent
- lyme serology; anaplasma, ehrlichia PCR on blood - no known exposures
- hep b/c serology in progress
- troponins downtrending
- follow fever curve
- agree with NSAIDs and colchicine
- no objection to steroids, I am not certain that this is a viral infection, however it appears quite severe in presentation and overall possible benefits likely outweigh risks
Community Acquired Pneumonia
- may reveal etiology of secondary myocarditis
- sputum culture if able to obtain
- agree with ceftriaxone and azithromycin - increased ctx dose to 2 gm iv q24
Transaminitis
- hep A/B/C serologies in progress
Discussed at length with cardiology, pulm, IM services. Transfer to [facility] may be considered particularly if patient fails to improve
Follow clinically
[2024-05-05 15:51] LABS: Covid-19 RAPID by NAA Negative (Negative)
--- NOTE | 2024-05-05 16:05 | CON.ID ---
Addendum entered and electronically signed by Dana Morrison MD 05/06/24 11:52:
I personally performed a history and physical exam of the patient and discussed management with the resident. I reviewed the resident's note and agree with the documented findings and plan of care HPI/CC with the following additions/corrections:
CC: chest pain
HPI:
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 Symptoms first began 5 days prior
to arrival with fevers, chills, myalgias, sore throat, cough and progressed to dyspnea on exertion. No home test for covid. Was vaccinated for COVID x3, doesnt think hes had a booster in the last 2 years. Never known to have covid but generally
didnt test himself when ill in previous years. Then Wednesday night he developed the chest pressure. No pain with a deep breath. No known sick contacts, not around any small children. No travel. No pets or farm animals
On arrival here patient was initially afebrile, later spiking a T to 100.6, bp initially stable intermittently mildly hypotensive, HR 100s, RR teens, wbc 8.6, hgb 11.8, plt 191, no left shift, mild lymphocytopenia, esr 36, d-dimer pending, na 139,
cr 1.2, a1c 5.5, lactic acid pending, ca 9.1, t bili 0.6, ast 158 later increased to 182, alt 52, alk phos 77, ECG shows T wave inversions in lead III, ST elevations in V1 V2, V V4 through V6. Initial troponin was 24 peaked at 31 and now
downtrending. CRP 204, chest x-ray was clear. CT chest PE study: severe bronchitis and pneumonia with hilar adenopathy Taken for Cardiac MRI: severe acute myocarditis. Abd US: no acute process
Past Medical History: Asthma
Past Surgical History: None
Social History
Tobacco: Non-Smoker
Alcohol: None
Drug: None
Personal: Single (At home with family); sexually active with women, 3 lifetime sexual partners, no known history of STIs
Living: With Family
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
Family History
Family History: Reviewed & Not Pertinent
Allergies: NKDA
Homed Medications: none
Physical Exam
Vital Signs
Vital Signs
Pulse Resp BP Pulse Ox
97 18 101/58 98
05/05/24 01:15 05/05/24 01:15 05/05/24 01:00 05/05/24 01:00
Physical Exam
General: Well Developed, comfortable
Respiratory: Clear to ascultation, no rales, wheezes or ronchi
Cardiac: S1/S2 and Regular Rhythm
GI: Soft, Non Tender, Non Distended and Normal Bowel Sounds
: no suprapubic tenderness
Musculoskeletal: No Clubbing, No Cyanosis and No Edema
Psych: Calm
Labs and imaging results reviewed: as documented in HPI
A&P
Myocarditis
- blood cultures x2
- covid pcr; note negative covid antigen, PCR would be more sensitive
- influenza pcr negative
- s pneumo urine antigen in progress
- resp viral panel
- sputum culture
- mrsa screen is pending
- HIV screen - patient gives consent
- lyme serology; anaplasma, ehrlichia PCR on blood - no known exposures
- hep b/c serology in progress
- troponins downtrending
- follow fever curve
- agree with NSAIDs and colchicine
- no objection to steroids, I am not certain that this is a viral infection, however it appears quite severe in presentation and overall possible benefits likely outweigh risks
Community Acquired Pneumonia
- may reveal etiology of secondary myocarditis
- sputum culture if able to obtain
- agree with ceftriaxone and azithromycin - increased ctx dose to 2 gm iv q24
Transaminitis
- hep A/B/C serologies in progress
Discussed at length with cardiology, pulm, IM services. Transfer to [facility] may be considered particularly if patient fails to improve
Follow clinically
Original Note:
Consultation
-
Date/Time Consultation Requested: 05/05/2024, 10:36 AM
Date/Time Consultation Performed: 05/05/2024, 4:05 PM
Requesting Provider: Andres Villeda MD
Performing Provider: Paty Sarah MD for Dana Morrison MD
Reason for Consultation: Myocarditis
Chief Complaint / Past History
Chief Complaint
Progressively worsening substernal chest pain x 2 days.
History of Present Illness
23-year-old known asthmatic but otherwise healthy male presents to the emergency department with 2 days of substernal chest pain radiating into his left upper arm. 5 days ago it started with flulike symptoms and some sore throat. He had
odynophagia and his flulike symptoms included headache, subjective fevers, chills, myalgias-he did not check for his temperature but took Sudafed and DayQuil. They helped them a little bit, but he got slowly better with time. However he started
noticing substernal chest pain about 8 out of 10 in intensity that does not change with position, or inspiration and is associated with difficulty breathing. He eventually developed shortness of breath on exertion but denies having orthopnea or PND
or swelling of the feet. He did not check himself for COVID-19, denies having any sick contacts or recent travels.
Denies having nausea, vomiting, change in bowel or bladder habits, abdominal pain, ear pain, earache, ear discharge, fatigue and lightheadedness or dizziness. Also denies family history of early early heart disease or autoimmune disorders.
Upon arrival in the ER patient was hemodynamically stable and did not require oxygen. He later was febrile with a temperature of 100.6 and softer blood pressures, tachycardia but with normal WBC, lactic acid 0.9, ESR at 36, CRP in 100s,
transaminitis. EKG showed ST elevations through V1, V2, V3, V4 through V6 with T wave inversions in lead III. His initial troponin was 0.4 and then his troponin elevated to be at 24 and then peaked to 35 on but now downtrending. He underwent left
heart catheterization with elevated LVEDP at 29, no coronary artery dissection or Takotsubo cardiomyopathy.
Chest x-ray was clear, CT chest PE study showed severe bronchitis and pneumonia with hilar lymphadenopathy and cardiac MRI showed evidence for severe acute myopericarditis.
Abdominal ultrasound-no
Past History
Past Medical History: Other (Chronic lung disease, premature , asthma)
Past Surgical History: None
Allergy History:
No Known Allergies Allergy (Unverified 05/05/24 00:25)
Medications Reviewed: Yes
Social History
Tobacco: Non-Smoker
Alcohol: None
Drug: None
Personal: Other (2 lifetime female sexual partners, always uses protection, condoms, never screened for sexually transmitted diseases.)
Living: With Family
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
Family History
Family History: Not Pertinent
Review of Systems
Review of Systems
General: Fever; Negative Chills or Change in Appetite
HEENT: Negative Headache
Cardiovascular: Chest Pain
Respiratory: Dyspnea and Other (chest pain at the end of inspiration); Negative Cough
Gasteroenterology: Negative Nausea or Vomiting
Genital / Urological: Negative Hematuria
Endocrine: Negative Weakness
Musculoskeletal: Myalgias; Negative Joint Pain, Joint Swelling or Arthralgias
Skin / Hair / Nails: Negative Rash
Neurological: Headache
Vital Signs
Temp Pulse Resp BP Pulse Ox
100.6 F H 102 16 91/57 94
05/05/24 11:37 05/05/24 11:37 05/05/24 11:37 05/05/24 11:37 05/05/24 11:37
Physical Exam
Physical Exam
Constitutional: Comfortable
Eyes: Negative Erythema
Cardiovascular: Regular Rate and S1/S2; Negative Murmur, Rub or Gallop
Pulmonary: Clear; Negative Wheezes, Rales or Rhonchi
Gastrointestinal: Soft, Non Tender, Non Distended and Normal Bowel Sounds
Extremities: Negative Edema, Clubbing or Cyanosis
Skin: Warm; Negative Rash
Neurological: Awake and Alert
Psychological: Calm
Lab / Diagnostic Study Results
05/05/24 11:04
05/05/24 11:04
Abs Immat Gran (auto) 0.0 10^3/uL (0-0.05) 05/05/24 00:32
Absolute Neuts (auto) 5.9 10^3/uL (1.4-6.5) 05/05/24 00:32
Absolute Lymphs (auto) 1.6 10^3/uL (1.2-3.4) 05/05/24 00:32
Absolute Monos (auto) 0.9 10^3/uL (0.1-0.6) H 05/05/24 00:32
Absolute Basos (auto) 0.0 10^3/uL (0-0.2) 05/05/24 00:32
Immature Gran % 0.4 % (0-0.5) 05/05/24 00:32
Neutrophils % 68.4 % (42.2-75.2) 05/05/24 00:32
Lymphocytes % 18.5 % (20.5-51.1) L 05/05/24 00:32
Monocytes % 11.0 % (1.7-9.3) H 05/05/24 00:32
Eosinophils % 1.5 % (0-6) 05/05/24 00:32
Basophils % 0.2 % (0-2) 05/05/24 00:32
ESR 36 mm/hour (0-20) H 05/05/24 01:00
PT 13.6 Sec (11.4-14.6) 05/05/24 00:32
INR 1.05 05/05/24 00:32
C-Reactive Protein 204.50 mg/L (0.0-10.00) H 05/05/24 01:00
SARS CoV-2 RNA Rapid ANN Negative (Negative) 05/05/24 15:26
Microbiology Results
Micro:
05/05/24 15:53 Influenza Type A (PCR) - Pending
Nasalpharynx Influenza Type A (H1) (PCR) - Pending
Influenza Type A (H3) (PCR) - Pending
Influenza Type B (PCR) - Pending
Resp Syncytial Virus Type A (PCR) - Pending
Resp Syncytial Virus Type B (PCR) - Pending
Adenovirus DNA (PCR) - Pending
Human Metapneumovirus (PCR) - Pending
Parainfluenza Virus Type 1 (PCR) - Pending
Parainfluenza Virus Type 2 (PCR) - Pending
Parainfluenza Virus Type 3 (PCR) - Pending
Parainfluenza Virus Type 4 - Pending
Rhinovirus (PCR) - Pending
05/05/24 15:08 MRSA Screen - Pending
Nose
05/05/24 01:00 Influenza Types A & B (ANN) - Final
Nasal Swab Negative for Influenza A & B, NAAT
Negative results must be combined with clinical observations
and patient history.
Nucleic Acid Amplification test (NAAT)performed on the
[employer] platform.
Blood cultures x 2 pending.
Assessment / Plan
Assessment-
Subjective-chest pain that worsens with inspiration, dyspnea on exertion.
Objective findings-tachycardia, febrile, soft blood pressures, WBC-8.6, hemoglobin-11.8, platelet-191, mild lymphocytopenia
Elevated ESR, CRP, lactic acid levels within normal limits, serum creatinine at 1.2, YnH8v-8.5, transaminitis.
Initial EKG showed ST elevations from V1 through V6, repeat EKG showed sinus tachycardia with ST depressions.
Elevated troponins to peak of 34 and then trending down.
Left heart catheterization evidence for elevated left ventricular end-diastolic pressure at 29.
Flu and COVID nasal swab negative. MRSA nasal swab pending. Influenza PCR negative
CT chest PE-severe bronchitis and pneumonia, hilar lymphadenopathy
Cardiac MRI-acute myocarditis-severe
No known exposure for tick bites.
Plan-
Acute severe myopericarditis-
Blood cultures x 2-pending
COVID PCR pending
Respiratory viral panel pending
Will consider getting enterovirus panel as well.
Screen for HIV.
No known exposure for Lyme's or Anaplasma or L ratio
Hepatitis B serology pending
Troponins downtrending
Currently on NSAIDs and colchicine.
Given the evidence for pneumonia patient is currently on ceftriaxone and azithromycin. Agree with antibiotics.
Ceftriaxone 2 g IV every 24 hours, azithromycin IV 500 mg every 24 hours.
Initiated steroids for severe pneumonia.
--- NOTE | 2024-05-05 16:31 | W.PN.UPDATE ---
Update Note
Progress Note Update
Cardiology update note
I reviewed the cardiac MRI findings concerning for myopericarditis. Given patient is young and otherwise healthy, I reached out to Dr. Kimberly Palmer from advanced heart failure at [facility] to discuss this case. We agreed that
currently given patient is stable from a cardiac standpoint with no significant ventricular ectopy on telemetry, no oxygen requirement, no significant hemodynamic compromise, a urgent transfer to a tertiary center currently would not change
management that we are pursuing currently.
We will continue to monitor him closely on telemetry. Currently his blood pressures which are borderline low likely due to SIRS/sepsis rather than a cardiogenic etiology. His echocardiogram showed close to preserved LV systolic function and he
does not examine in a low flow state. LVEDP was elevated at 29 mmHg on recent heart catheterization.
Plan:
1. We will continue colchicine 0.6 mg twice daily as anti-inflammatory.
2. Given mixed findings on multiple different studies of using NSAIDs in the setting of myocarditis with potential risk for increasing morbidity and mortality, we will for now discontinue ibuprofen and reassess patient's symptoms on a daily basis.
If his pain is uncontrolled, we would reconsider short-term course of NSAIDs but will otherwise try to manage conservatively for now.
3. Close monitoring of electrolytes with plan to keep potassium over 4 and magnesium over 2.
4. Close monitoring on telemetry to assess ectopy.
5. We will trial gentle diuresis with 20 mg of IV Lasix daily.
6. Once blood pressures are better, we would ideally like to start low-dose TRIPP inhibitor like enalapril at 2.5 mg with beta-blockers to follow subsequently to avoid blunting his sympathetic response which he is currently mounting in response to
underlying infection.
Discussed all of the above with primary team, pulmonary medicine and infectious disease. Will discuss all of it with patient and family at bedside.
Michelle Sarah MD, FAC, PSYCHIATRIC
[2024-05-05 16:33] LABS: D-Dimer 0.36 ug/mlFEU (0.00-0.50)
[2024-05-05] MEDS: DECADRON 4 MG IV ×2 (16:36→23:04)
[2024-05-05 16:41] LABS: Lactic Acid 0.9 mmol/L (0.7-2.0)
[2024-05-05 17:17] LABS: Procalcitonin 0.29 ng/ml (0.0-0.25)
[2024-05-05 17:17] LABS: Hepatitis B Surface Antigen Negative (Negative)
[2024-05-05 17:34] LABS: Hepatitis B Surface Antibody Negative; Hepatitis C Antibody Negative (Negative)
[2024-05-05] MEDS: LOVENOX 40 MG SC (18:55)
--- NOTE | 2024-05-05 20:03 | PTCARENOTE ---
Patient returned from cardiac MRI, feeling a little better but still no appetite. Ordered lasix IV, BP 91/57- notified Dr. Sarah of low BP. Patient aware of need for urine specimen and sputum if able.
[2024-05-05 20:39] LABS: Urine Albumin Trace (Neg - Trace); Urine Bilirubin 1+ (Negative); Urine Character Clear (Clear); Urine Color Amber; Urine Glucose Negative (Negative); Urine Ketone 2+ (Negative); Urine Leukocyte Negative (Negative); Urine Nitrite Negative (Negative); Urine Occult Blood Negative (Negative); Urine Specific Gravity 1.015 (<1.030); Urine Urobilinogen 2+ (Neg - 1+)
[2024-05-05 20:55] LABS: Amphetamines Negative (Negative); Barbiturates Negative (Negative); Benzodiazepines Positive (Negative); Buprenorphine Negative (Negative); Cocaine Negative (Negative); Marijuana Negative (Negative); Methadone Negative (Negative); Methamphetamines Negative (Negative); Opiates Negative (Negative); Phencyclidine Negative (Negative); Tricyclic Antidepressants Negative (Negative)
[2024-05-05 21:16] LABS: Fentanyl, Urine Positive (Negative)
--- NOTE | 2024-05-06 00:31 | PTCARENOTE ---
Pt received start of shift, HR SR/ST. Pt afebrile. No diaphoresis. Pt states CP is 'manageable' and does not want any extra pain medication at this time. Reinforced purpose of medications pt is receiving, especially colchicine and motrin. Pt and
family updated on plan of care, pt verbalizes understanding.
[2024-05-06 05:53] VITALS: BP 106/46
[2024-05-06] MEDS: ROCEPHIN 2000 MG IV (05:59)
[2024-05-06] MEDS: STERILE WATER FOR INJECTION 20 ML IV (05:59)
[2024-05-06 06:00] VITALS: BMI 26.6
[2024-05-06 07:30] VITALS: BP 102/29
--- NOTE | 2024-05-06 08:03 | W.PN.CARDCBS ---
Addendum entered and electronically signed by Cahs Tyler MD 05/06/24 14:18:
I saw and examined the patient.
The Garde Manger's note was reviewed and I agree with the note.
Comment:
GEN: No distress, awake, Ox3
HEENT: supple, anicteric, mmm
LUNGS: Bilateral rhonchi
CV: Reg, S1/S2, 1/6 syst LSB, no gallop
ABD: soft, BS+, NT/ND
EXT: No edema
NEURO: Gross non-focal
SKIN: No rash
Plan:
Overall he continues to improve. Cardiac troponins are trending down. LVEF is overall stable. I reviewed MRI which does have an area of enhancement in the inferolateral wall suggesting of myocarditis.
Continue colchicine. Agree with stopping nonsteroidal anti-inflammatories.
Will try to add low-dose lisinopril tonight and follow blood pressure.
Telemetry remains stable.
I did discuss with him and his father the importance of avoiding intense competitive sports for 3 months.
Original Note:
Today's Communication / Plan
-
Continue ibuprofen
Continue colchicine
Continue antibiotics
FolloW volume status
Follow fever curve
Impression / Plan
-
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
Assessment: This is a 23-year-old male with past medical history of asthma, 5 days of resolving URI, who presented to the ED with progressively worsening substernal, pleuritic chest pressure for 2 days. ECG in the ED remarkable for T wave
inversion in lead III and ST elevation in V1 through V6. His initial troponin was 24.4 and peaked at 31.5, chest x-ray was clear. Urgent bedside echocardiography showed normal LV systolic function with no significant pericardial effusion. Patient
received ASA and heparin bolus and was taken to the General Technician with no obstructive coronary artery disease. His lab was also remarkable for elevated CRP. Subsequent EKG was remarkable for sinus tachycardia with ST elevations in lead I, II, aVF,
V4-V6. Cardiology was consulted for further evaluation and management.
Impression:
Presentation with pleuritic chest pain
SOB
Bronchitis/PNA on chest CT
Fever
Mild transaminitis
Asthma
ECHO 05/05/24: EF preserved, no WMA
Cath 05/05/24: No obstructive CAD, elevated LVEDP 29mmHg
Plan:
Presentation with pleuritic chest pain in the setting of recent viral infection
-EKG changes suspicious for viral myocarditis/pericarditis given recent URI; s/p cardiac cath with no obstructive CAD, troponin peaked at 31.5, CRP elevated, CK severely elevated.
-Chest CT 05/05/2024 negative for PE, with severe bronchitis and left lower lobe pneumonia.
-Cardiac MRI 05/05/2024 with severe acute myocarditis mostly in inferior and lateral rodrigues of LV, small pericardial effusion, severe right and moderate left LL pneumonia.
-Discontinue ibuprofen given that studies have shown increased mortality and enhancement of myocarditic process in patients with myocarditis.
-Will continue colchicine 0.6 mg twice daily for at least 3 months.
-Elevated LVEDP 29 mmHg, follow volume status, may need diuresis.
-Will monitor on telemetry
SOB
-Improved
-Chest CT 05/05/2024 with severe bronchitis and B/L pneumonia.
-Defer PNA workup and treatment to ID and primary service.
-Continue antibiotics
-Follow fever curve
Data:
Cardiac MRI 05/05/24
1. SEVERE ACUTE MYOCARDITIS with a large amount of left ventricular wall enhancement which is mostly located in the inferior and lateral rodrigues of the left ventricle.
2. Mild acute pericarditis with a small pericardial effusion.
3. Global systolic LV function: Mildly impaired.
4. Global systolic RV function: Normal.
5. Valvular disease: None.
6. SEVERE RIGHT and MODERATE LEFT LOWER LOBE PNEUMONIA.
7. Small bilateral pleural effusions.
Chest X-Ray 05/05/2024:
No acute pulmonary process identified radiographically.
Chest CT Scan 05/05/2024:
1. Severe bronchial wall thickening in both lungs suggesting SEVERE BRONCHITIS.
2. Moderate airspace opacity in the right lower lobe and mild airspace opacity in the left lower lobe most consistent with MODERATE RIGHT LOWER LOBE and MILD LEFT LOWER LOBE PNEUMONIA.
3. Small bilateral pleural effusions.
4. Mild bilateral hilar and subcarinal lymphadenopathy.
LHC 05/05/24:
1. No obstructive coronary artery disease.
2. Elevated LVEDP at 29 mmHg.
Progress Note - Mechanical Planner
Subjective
Date of Service: May 06, 2024
Patient was seen and examined with by bedside. Patient is hemodynamically stable does not have any acute complaints. He denied chest pain, shortness of breath, abdominal pain, dizziness, fever and chills. Patient reported to have fever last night
100.6 but currently afebrile.
Current medications include colchicine 0.6 mg twice daily, Lovenox 40 mg daily ceftriaxone 2000 mg daily, Bactrim 4 mg Q 8H, Dilaudid 0.25 mg as needed.
BP 97/66, pulse 95, respiratory 16, afebrile, saturating at 98%. Urine output is +180 mL, weight 70 kg (down 2.4 kg).
His WBC count is 12.9 with neutrophil predominance, Hb 12.9, AST 91, ALT 51, ESR 39 (was 36 yesterday), CRP 270 (was 204 yesterday),
Objective
Labs:
Labs
Hgb 12.6 g/dL (13.0-18.0) L 05/05/24 11:04
Hct 36.7 % (39.0-52.0) L 05/05/24 11:04
Plt Count 188 10^3/uL (130-400) 05/05/24 11:04
PT 13.6 Sec (11.4-14.6) 05/05/24 00:32
INR 1.05 05/05/24 00:32
APTT 37.2 Sec (23.4-35.0) H 05/05/24 00:32
Sodium 140 mmol/L (135-145) 05/05/24 11:04
Potassium 4.5 mmol/L (3.5-5.1) 05/05/24 11:04
BUN 15 mg/dl (9-20) 05/05/24 11:04
Creatinine 1.0 mg/dL (0.7-1.3) 05/05/24 11:04
Glucose 97 mg/dl (70-99) 05/05/24 11:04
Troponins
05/05/24 05/05/24 05/05/24
00:32 03:03 11:04
Troponin I 24.400 H* 31.500 H* D 28.500 H*
05/05/24
18:30
Troponin I Cancelled
Vital Signs and I&O:
Vital Signs
Temp Pulse Resp BP Pulse Ox
97.5 F 95 16 97/66 98
05/06/24 07:32 05/05/24 19:30 05/06/24 07:32 05/05/24 18:16 05/06/24 07:32
Vital Signs
Temp Pulse Resp BP Pulse Ox
97.5 F 95 16 97/66 98
05/06/24 07:32 05/05/24 19:30 05/06/24 07:32 05/05/24 18:16 05/06/24 07:32
Intake & Output
05/04/24 05/05/24 05/06/24 05/07/24
06:59 06:59 06:59 06:59
Intake Total 240 / 240 480 / 480
Output Total 300 / 300
Balance 240 / 240 180 / 180
Physical Exam
Physical Exam
General: Awake, alert and oriented x3, not in distress and holds appropriate conversation.
Neck:Supple, no JVD no bruit no goiter.
Respiratory: Normal AP contour and diameter, normal chest wall movement, normal respiratory effort, no respiratory distress.
Lungs: Good air entry bilaterally, no wheezing or rhonchi, no rales or crackles.
Heart: S1, S2 regular, normal rate, no S3 or S4
Gastrointestinal: Positive bowel sounds, soft, nontender, no guarding or rigidity or organomegaly
Extremities: No pitting edema, good peripheral pulses.
[2024-05-06] MEDS: MOTRIN 600 MG PO (08:40)
[2024-05-06] MEDS: DECADRON 4 MG IV ×3 (08:40→23:19)
[2024-05-06] MEDS: COLCHICINE 0.6 MG PO ×2 (08:40→20:21)
[2024-05-06 09:22] LABS: % Basophils 0.2 % (0-2); % Eosinophils 0.1 % (0-6); % Immature Granulocytes 0.5 % (0-0.5); % Monocytes 5.5 % (1.7-9.3); % Neutrophils 84.7 % (42.2-75.2); Absolute Immature Granulocytes 0.1 10^3/uL (0-0.05); Absolute Lymphocytes 1.2 10^3/uL (1.2-3.4); Absolute Monocytes 0.7 10^3/uL (0.1-0.6); Hematocrit 37.3 % (39.0-52.0); Hemoglobin 12.9 g/dL (13.0-18.0); Mean Corp Hgb Conc. 34.6 g/dL (33.0-37.0); Mean Corpuscular Hgb 26.5 pg (27.0-31.0); Mean Corpuscular Volume 76.6 fL (80.0-94.0); Mean Platelet Volume 10.3 fL (7.4-10.4); Nucleated Red Blood Cells % 0 % (-); Platelet Count 240 10^3/uL (130-400); Red Blood Cell Count 4.87 10^6/uL (4.70-6.10); Red Cell Dist. Width 13.6 % (11.5-14.5); White Blood Cell Count 12.9 10^3/uL (4.8-10.8)
[2024-05-06 09:37] LABS: Erythrocyte Sed Rate 39 mm/hour (0-20)
--- NOTE | 2024-05-06 10:07 | W.PN.PUL3 ---
Today's Communication / Plan
-
Antibiotics
Keep SpO2 >90-94%; if resting saturations are <96% on room air then check ambulatory pulse oximetry prior to discharge
Call to see
Continue with systemic steroids and transition to prednisone taper starting tomorrow
Outpatient pulmonary office follow-up will be arranged
Repeat imaging with CT chest in the next 4-6 weeks to follow-up pneumonia resolution
Follow-up cultures (NGTD)
Outpatient follow-up with his PCP + prep cook also recommended
Likely can be discharged home tomorrow
Assessment
-
Patient is a 23-year-old male with past medical history of asthma presenting to the emergency department with 2 days of substernal chest pressure. Had upper respiratory infection symptoms x 5 days, including cough/sore throat. Developed SAMUEL over
the past 2 days which was not relieved with inhalers. He then reported substernal chest pain, described as 'somebody sitting on his chest.' In ER, ECG shows T wave inversions in lead III, ST elevations in V1 V2, V V4 through V6. Initial troponin
was 0.4. Chest x-ray was clear. Given ASA and heparin bolus. Patient then underwent emergent cardiac cath. There was no obstructive coronary artery disease, but elevated LVEDP noted at 29 mmHg. No obvious evidence of Takotsubo by ECHO. CT showing
bibasilar infiltrates suspicious for PNA. We are consulted for eval.
Impression:
Bilateral infiltrates with bronchial wall thickening on CT consistent with CAP
Pleuritic chest pain/SOB
Acute HFmrEF dye to myopericarditis
EKG changes/ST seg elevation due to viral pericarditis/myocarditis
Elevated inflammatory markers
Suspected viral myocarditis
Generalized weakness
Fever
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
Asthma on prn albuterol HFA
Plan
No oxygen was needed on admission, currently saturating >90% on RA
Prior history of asthma noted, but this is generally well controlled on albuterol PRN, which is rarely needed
Continue with Decadron 4mg IV q8hr --> transition to prednisone taper starting tomorrow
Family states no exposure history, no travel/sick contacts, no inhalation exposures including smoking/vaping.
COVID tested negative on admission.
CXR/CT obtained indicating bibasilar infiltrates by appearance suggestive of PNA, no prior for comparison
Recommend repeating CT chest in 4-6 weeks to follow-up pneumonia resolution
Unable to produce sputum
Fevers resolved
Follow-up blood cultures (collected 05/05/2024 � NGTD)
Procal: 0.29 on 05/05/2024
Lactate WNL at 0.9 on 05/05/2024
Urine strep/legionella both negative
COVID and Flu negative
Agree with empiric abx - currently on ceftriaxone/Zithromax. Would complete a 5 to 7-day course of antibiotics
Cardiac testing reviewed including LHC and ECHO
Cardiac MRI showing acute myocarditis
Placed on colchicine
Will obtain autoimmune w/u given inflammatory marker elevation - drawn this AM (pending)
Check coxsackie serology
I updated the patient as well as his mother at bedside and all questions were answered to their satisfaction
Outpatient pulmonary follow-up will be arranged
We will follow while he remains hospitalized
Diagnostic Data
Chest X-Ray: 05/05/24- IMPRESSION: No acute pulmonary process identified radiographically.
Cardiac MRI 05/05/24- 1. SEVERE ACUTE MYOCARDITIS with a large amount of left ventricular wall enhancement which is mostly located in the inferior and lateral rodrigues of the left ventricle.
2. Mild acute pericarditis with a small pericardial effusion.
3. Global systolic LV function: Mildly impaired.
4. Global systolic RV function: Normal.
5. Valvular disease: None.
6. SEVERE RIGHT and MODERATE LEFT LOWER LOBE PNEUMONIA.
7. Small bilateral pleural effusions.
CT Scan: CHEST 05/05/24- 1. Severe bronchial wall thickening in both lungs suggesting SEVERE BRONCHITIS.
2. Moderate airspace opacity in the right lower lobe and mild airspace opacity in the left lower lobe most consistent with MODERATE RIGHT LOWER LOBE and MILD LEFT LOWER LOBE PNEUMONIA.
3. Small bilateral pleural effusions.
4. Mild bilateral hilar and subcarinal lymphadenopathy.
[facility] 05/05/24- CONCLUSIONS
1. No obstructive coronary artery disease.
2. Elevated LVEDP at 29 mmHg.
PFT's:
Reports and relevant images were personally reviewed.
Total time spent today was 35 minutes for this encounter. Time includes reviewing laboratory test/imaging results, reviewing pertinent medical records, obtaining and reviewing medical history, performing an appropriate exam, ordering medications,
tests and procedures. Time also includes documentation of this encounter, coordinating patient care and communicating with other healthcare professionals. Total time does not include separately billed tests performed on this date of service.
Subjective Data
-
Date of Service:
Date of Service: May 06, 2024
Chief Complaint: Pulmonary Follow Up
Subjective:
Patient seen and evaluated today at bedside. Currently on room air saturating 98%. He feels well with no chest pain or shortness of breath. Current heart rate 79, BP 108/62. He denies COOPER, nausea, vomiting, abdominal pain, fevers or chills.
Patient's mother, Mary, at bedside and all questions were answered.
Review of Systems
General: Other (Negative unless mentioned above)
Objective Data
Data Reviewed
Vital Signs / I&O / Oxygen:
Vital Signs
Temp Pulse Resp BP Pulse Ox
97.5 F 95 16 97/66 98
05/06/24 07:32 05/05/24 19:30 05/06/24 07:32 05/05/24 18:16 05/06/24 07:32
Intake and Output
05/05/24 05/06/24 05/07/24
06:59 06:59 06:59
Intake Total 240 / 240 480 / 480
Output Total 300 / 300
Balance 240 / 240 180 / 180
SaO2 98
Physical Exam
General: Respiratory Distress (negative), Comfortable, Chills (negative) and Sweats (negative)
HEENT: Normocephalic and Anicteric
Cardiovascular: S1-S2 and Peripheral Edema (negative)
Respiratory: Wheeze (negative), Crackles (Bibasilar), Rhonchi (negative) and Non-Labored Respirations
GI: Soft, Non Distended, Non Tender and Normal Bowel Sounds
Neurology: AO x 3 and Tremors (negative)
Skin: Warm, Dry and Jaundice (negative)
Labs/Micro/Reports
Lab Data
05/06/24 08:59
05/06/24 08:59
Laboratory Results
05/05/24
00:32
PT 13.6
INR 1.05
Microbiology
05/05/24 20:09 Urine Legionella Urinary Antigen - Final
Negative for Legionella pneumophila Serogroup 1 antigen.
A negative result does not rule out the possiblity of
Legionella infection due to other serogroups or species of
Legionella. Clinical correlation is recommended.
05/05/24 20:09 Urine Streptococcus pneumoniae Antigen (M - Final
Negative for Streptococcus pneumoniae antigen.
A negative result does not exclude infection with
Streptococcus pneumoniae. Clinical correlation is
recommended.
05/05/24 15:53 Nasalpharynx Influenza Type A (PCR) - Final
Not Detected
05/05/24 15:53 Nasalpharynx Influenza Type A (H1) (PCR) - Final
Not Detected
05/05/24 15:53 Nasalpharynx Influenza Type A (H3) (PCR) - Final
Not Detected
05/05/24 15:53 Nasalpharynx Influenza Type B (PCR) - Final
Not Detected
05/05/24 15:53 Nasalpharynx Resp Syncytial Virus Type A (PCR) - Final
Not Detected
05/05/24 15:53 Nasalpharynx Resp Syncytial Virus Type B (PCR) - Final
Not Detected
05/05/24 15:53 Nasalpharynx Adenovirus DNA (PCR) - Final
Not Detected
05/05/24 15:53 Nasalpharynx Human Metapneumovirus (PCR) - Final
Not Detected
05/05/24 15:53 Nasalpharynx Parainfluenza Virus Type 1 (PCR) - Final
Not Detected
05/05/24 15:53 Nasalpharynx Parainfluenza Virus Type 2 (PCR) - Final
Not Detected
05/05/24 15:53 Nasalpharynx Parainfluenza Virus Type 3 (PCR) - Final
Not Detected
05/05/24 15:53 Nasalpharynx Parainfluenza Virus Type 4 - Final
Not Detected
05/05/24 15:53 Nasalpharynx Rhinovirus (PCR) - Final
Not Detected
05/05/24 01:00 Nasal Swab Influenza Types A & B (ANN) - Final
Negative for Influenza A & B, NAAT
Negative results must be combined with clinical observations
and patient history.
Nucleic Acid Amplification test (NAAT)performed on the
[employer] platform.
[2024-05-06 10:11] LABS: ALT (SGPT) 51 U/L (0-50); AST (SGOT) 91 U/L (17-59); Albumin 3.6 g/dl (3.5-5.0); Alkaline Phosphatase 76 U/L (38-126); Blood Urea Nitrogen 16 mg/dl (9-20); Calcium 9.3 mg/dl (8.4-10.2); Carbon Dioxide 24 mmol/L (22-30); Chloride 104 mmol/L (98-107); Estimated Creatinine Clearance > 125 ml/min; Glucose 103 mg/dl (70-99); Magnesium 2.2 mg/dl (1.6-2.3); Potassium 5.1 mmol/L (3.5-5.1); Sodium 139 mmol/L (135-145); Total Bilirubin 0.6 mg/dl (0.2-1.3); Total Protein 6.7 g/dl (6.3-8.2); eGFR > 60.00
[2024-05-06 10:30] LABS: C-Reactive Protein > 270.00 mg/L (0.0-10.00)
[2024-05-06] MEDS: ZITHROMAX INFUSION 250 IV (10:38)
--- NOTE | 2024-05-06 11:47 | W.PN.ID1 ---
Date of Service
Date of Service: May 06, 2024
Today's Communication
- given negative covid PCR could consider stopping steroids
additional workup pending as below
continue with ceftriaxone and azithromycin
Assessment / Plan
Myocarditis - severe
- blood cultures x2 in progress no growth to date
- covid pcr and antigen both negative
- influenza pcr negative
- s pneumo/legionella antibodies negative
- resp viral panel negative
- has not produced a sputum for culture yet, brought pt cup
- mrsa screen is pending
- HIV screen - patient gives consent, pending
- lyme serology; anaplasma, ehrlichia PCR on blood - no known exposures
- hep a/b/c serology not previously vaccinated and not previously exposed
- note mildly elevated procal, even if negative I would not stop antibiotics
- troponins downtrending
- follow fever curve
- agree with colchicine, NSAIDs per cardiology
- given negative covid PCR could consider stopping steroids
Community Acquired Pneumonia
- may reveal etiology of secondary myocarditis
- sputum culture if able to obtain
- continue with ceftriaxone and azithromycin
Chief Complaint
-: Fever and Other (myocarditis)
Subjective / Review of Systems
no further fevers
no events overnight
mild hypotension this afternoon
Vital Signs / Physical Exam
Vital Signs
Vital Signs
Temp Pulse Resp BP Pulse Ox
97.5 F 95 16 97/66 98
05/06/24 07:32 05/05/24 19:30 05/06/24 07:32 05/05/24 18:16 05/06/24 07:32
Physical Exam
Constitutional: No Acute Distress and Other (comfortable)
Cardiovascular: Regular Rate and S1/S2; Negative Murmur or Rub
Pulmonary: Clear and Symmetric; Negative Wheezes or Rales
Gastrointestinal: Soft, Non Tender, Non Distended and Normal Bowel Sounds
Skin: Warm and Dry; Negative Rash or Jaundice
Psychological: Calm
Objective Data
Lab Data
Lab Results
05/06/24 08:59
05/06/24 08:59
ESR 39 mm/hour (0-20) H 05/06/24 08:59
PT 13.6 Sec (11.4-14.6) 05/05/24 00:32
INR 1.05 05/05/24 00:32
APTT 37.2 Sec (23.4-35.0) H 05/05/24 00:32
Estimated Creat Clear > 125 ml/min 05/06/24 08:59
Lactic Acid 0.9 mmol/L (0.7-2.0) 05/05/24 15:51
Total Bilirubin 0.6 mg/dl (0.2-1.3) 05/06/24 08:59
AST 91 U/L (17-59) H 05/06/24 08:59
ALT 51 U/L (0-50) H 05/06/24 08:59
Alkaline Phosphatase 76 U/L (38-126) 05/06/24 08:59
C-Reactive Protein > 270.00 mg/L (0.0-10.00) H 05/06/24 08:58
Most recent labs reviewed.
Micro Results:
05/05/24 20:09 Legionella Urinary Antigen - Final
Urine Negative for Legionella pneumophila Serogroup 1 antigen.
A negative result does not rule out the possiblity of
Legionella infection due to other serogroups or species of
Legionella. Clinical correlation is recommended.
Streptococcus pneumoniae Antigen (M - Final
Negative for Streptococcus pneumoniae antigen.
A negative result does not exclude infection with
Streptococcus pneumoniae. Clinical correlation is
recommended.
05/05/24 15:53 Influenza Type A (PCR) - Final
Nasalpharynx Not Detected
Influenza Type A (H1) (PCR) - Final
Not Detected
Influenza Type A (H3) (PCR) - Final
Not Detected
Influenza Type B (PCR) - Final
Not Detected
Resp Syncytial Virus Type A (PCR) - Final
Not Detected
Resp Syncytial Virus Type B (PCR) - Final
Not Detected
Adenovirus DNA (PCR) - Final
Not Detected
Human Metapneumovirus (PCR) - Final
Not Detected
Parainfluenza Virus Type 1 (PCR) - Final
Not Detected
Parainfluenza Virus Type 2 (PCR) - Final
Not Detected
Parainfluenza Virus Type 3 (PCR) - Final
Not Detected
Parainfluenza Virus Type 4 - Final
Not Detected
Rhinovirus (PCR) - Final
Not Detected
05/05/24 17:53 Blood Culture - Pending
Blood/Venous
05/05/24 15:54 Blood Culture - Pending
Blood/Venous
05/05/24 15:08 MRSA Screen - Pending
Nose
05/05/24 01:00 Influenza Types A & B (ANN) - Final
Nasal Swab Negative for Influenza A & B, NAAT
Negative results must be combined with clinical observations
and patient history.
Nucleic Acid Amplification test (NAAT)performed on the
[employer] platform.
Blood cultures x 2 pending.
[2024-05-06 12:04] VITALS: BP 108/62
--- NOTE | 2024-05-06 14:18 | W.PN.HOSP.TC ---
Today's Communication/Plan
-
continue current plan of care
follow cards/ID/pulm recs
Assessment / Plan
Assessment / Plan
CMRI: SEVERE ACUTE MYOCARDITIS with a large amount of left ventricular wall enhancement which is mostly located in the inferior and lateral rodrigues of the left ventricle.
2. Mild acute pericarditis with a small pericardial effusion.
3. Global systolic LV function: Mildly impaired.
4. Global systolic RV function: Normal.
5. Valvular disease: None.
6. SEVERE RIGHT and MODERATE LEFT LOWER LOBE PNEUMONIA.
7. Small bilateral pleural effusions.
Assessment:
Suspected viral myopericarditis
Elevated troponin with concern for STEMI on arrival; s/p urgent cath with nonobstructive disease, nonischemic myocardial injury from possible felipe/pericarditis
- s/p urgent cath with nonobstructive disease, nonischemic myocardial injury from possible felipe/pericarditis; trop peaked 31.5
- cardiac MRI results summarized above
- recent viral illness
- continue Colchicine BID per Cardiology. NSAIDs stopped
- continue Decadron per Pulmonary; low threshold to stop
- continue cardiomyopathy meds: Lisinopril
- no evidence of unstable rhythms or acute CHF necessitating transfer at this time.
Transaminitis, acute
- likely from viral illness; hep panel pending
- RUQ US: unremarkable
- trend LFTs, are improving slowly
Severe bronchitis with bilateral pneumonia on CT
Underlying history of lung issues/asthma since (born 29 weeks)
- continue prn inhalers
- continue Rocephin, Azithromycin, day 2. Noted MRSA +, defer to ID on Abx adjustment
- ID and Pulm following
DVT ppx: Lovenox
Code: Full
d/w father at bedside.
Anticipated Discharge: > 48 hours
Subjective/Interval History
-
Date of Service: May 06, 2024
reports improvement with chest pain and improvement with SOB
more comfortble today
Objective Data
-
Labs:
Laboratory Results
05/06/24
08:59
WBC 12.9 H
Hgb 12.9 L
Hct 37.3 L
Plt Count 240 D
Sodium 139
Potassium 5.1
Chloride 104
Carbon Dioxide 24
BUN 16
Creatinine 0.7
Glucose 103 H
Calcium 9.3
Total Bilirubin 0.6
AST 91 H
ALT 51 H
Alkaline Phosphatase 76
Vital Signs:
Vital Signs
Temp Pulse Resp BP Pulse Ox
97.6 F 88 18 108/62 98
05/06/24 12:02 05/06/24 12:15 05/06/24 12:02 05/06/24 12:04 05/06/24 12:02
I&O
05/05/24 05/06/24 05/07/24
06:59 06:59 06:59
Intake Total 240 / 240 480 / 480
Output Total 300 / 300
Balance 240 / 240 180 / 180
Physical Exam
-
General: No Apparent Distress
HEENT: Normocephalic and Atraumatic
Respiratory: Negative Wheezes
Cardiac: Regular Rhythm and S1/S2
GI: Soft and Nontender
Genito-urinary: No Costovertebral Tender
Neuro: AO x 3
Psych: Calm
Data Reviewed
-
Total Time Spent with Patient (in minutes): 42
Labs: Labs Reviewed by me
[2024-05-06 15:28] VITALS: BP 136/88
[2024-05-06] MEDS: ZESTRIL 2.5 MG PO (15:43)
[2024-05-06] MEDS: LOVENOX 40 MG SC (17:43)
--- NOTE | 2024-05-06 17:56 | PTCARENOTE ---
Patient continues to be SR on the monitor, VSS. Pt placed on contact precautions. Provided patient with educational materials on medications. No complaints from pt, call her within reach.
[2024-05-06 20:20] VITALS: BP 109/58
[2024-05-06 22:29] VITALS: BP 110/57
[2024-05-07 02:01] LABS: ANA, IgG Reflex to HEp-2 None Detected (None Detected)
[2024-05-07] MEDS: ROCEPHIN 2000 MG IV (05:01)
[2024-05-07] MEDS: STERILE WATER FOR INJECTION 20 ML IV (05:01)
[2024-05-07 05:12] VITALS: BP 109/65
[2024-05-07 05:40] LABS: % Basophils 0.2 % (0-2); % Eosinophils 0.1 % (0-6); % Immature Granulocytes 0.7 % (0-0.5); % Lymphocytes 6.5 % (20.5-51.1); % Monocytes 3.7 % (1.7-9.3); % Neutrophils 88.8 % (42.2-75.2); Absolute Immature Granulocytes 0.1 10^3/uL (0-0.05); Absolute Lymphocytes 1.2 10^3/uL (1.2-3.4); Absolute Monocytes 0.7 10^3/uL (0.1-0.6); Absolute Neutrophils 16.4 10^3/uL (1.4-6.5); Hematocrit 38.8 % (39.0-52.0); Hemoglobin 13.1 g/dL (13.0-18.0); Mean Corp Hgb Conc. 33.8 g/dL (33.0-37.0); Mean Corpuscular Hgb 26.7 pg (27.0-31.0); Mean Corpuscular Volume 79.2 fL (80.0-94.0); Mean Platelet Volume 10.4 fL (7.4-10.4); Nucleated Red Blood Cells % 0 % (-); Platelet Count 297 10^3/uL (130-400); Red Cell Dist. Width 13.9 % (11.5-14.5); White Blood Cell Count 18.4 10^3/uL (4.8-10.8)
[2024-05-07 05:58] LABS: ALT (SGPT) 44 U/L (0-50); AST (SGOT) 48 U/L (17-59); Albumin 3.7 g/dl (3.5-5.0); Alkaline Phosphatase 83 U/L (38-126); Blood Urea Nitrogen 16 mg/dl (9-20); Calcium 9.3 mg/dl (8.4-10.2); Carbon Dioxide 25 mmol/L (22-30); Chloride 105 mmol/L (98-107); Estimated Creatinine Clearance 122 ml/min; Glucose 118 mg/dl (70-99); Sodium 142 mmol/L (135-145); Total Bilirubin 0.5 mg/dl (0.2-1.3); eGFR > 60.00
[2024-05-07 06:00] VITALS: BMI 26.6
[2024-05-07 08:07] VITALS: BP 99/56
--- NOTE | 2024-05-07 09:41 | W.PN.PUL3 ---
Today's Communication / Plan
-
Abx per ID
Continue with systemic steroids and transition to prednisone today with rapid taper
Outpatient pulmonary office follow-up will be arranged
Repeat imaging with CT chest in the next 4-6 weeks to follow-up pneumonia resolution
Follow-up cultures (NGTD)
Outpatient follow-up with his PCP + camelid fiber sorter also recommended
Patient is being prepared for discharge home. Pulmonary service will now sign off. Please reconsult if there are any additional questions/concerns, or if patient's respiratory status deteriorates.
Assessment
-
Patient is a 23-year-old male with past medical history of asthma presenting to the emergency department with 2 days of substernal chest pressure. Had upper respiratory infection symptoms x 5 days, including cough/sore throat. Developed SAMUEL over
the past 2 days which was not relieved with inhalers. He then reported substernal chest pain, described as 'somebody sitting on his chest.' In ER, ECG shows T wave inversions in lead III, ST elevations in V1 V2, V V4 through V6. Initial troponin
was 0.4. Chest x-ray was clear. Given ASA and heparin bolus. Patient then underwent emergent cardiac cath. There was no obstructive coronary artery disease, but elevated LVEDP noted at 29 mmHg. No obvious evidence of Takotsubo by ECHO. CT showing
bibasilar infiltrates suspicious for PNA. We are consulted for eval.
Impression:
Bilateral infiltrates with bronchial wall thickening on CT consistent with CAP
Pleuritic chest pain/SOB
Acute HFmrEF dye to myopericarditis
EKG changes/ST seg elevation due to viral pericarditis/myocarditis
Elevated inflammatory markers
Suspected viral myocarditis
Generalized weakness
Fever
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
Asthma on prn albuterol HFA
Plan
No oxygen was needed on admission, currently saturating >90% on RA
Prior history of asthma noted, but this is generally well controlled on albuterol PRN, which is rarely needed
Continue with Decadron 4mg IV q8hr --> transition to prednisone taper starting today with rapid taper
Family states no exposure history, no travel/sick contacts, no inhalation exposures including smoking/vaping.
COVID tested negative on admission.
CXR/CT obtained indicating bibasilar infiltrates by appearance suggestive of PNA, no prior for comparison
Recommend repeating CT chest in 4-6 weeks to follow-up pneumonia resolution
Unable to produce sputum
Fevers resolved
Follow-up blood cultures (collected 05/05/2024 � NGTD)
Procal: 0.29 on 05/05/2024
Lactate WNL at 0.9 on 05/05/2024
Urine strep/legionella both negative
COVID and Flu negative
Agree with empiric abx - currently on ceftriaxone/Zithromax. Would complete a 5 to 7-day course of antibiotics --> being DC'd on cefdnir and zithromax to complete ABx course
Cardiac testing reviewed including LHC and ECHO
Cardiac MRI showing acute myocarditis
Continue colchicine as per cardiology
Autoimmune testing pending given inflammatory marker elevation - drawn yesterday AM (pending)
Coxsackie serology drawn this AM - pending
I updated the patient as well as his mother and additional family members at bedside and all questions were answered to their satisfaction
Outpatient pulmonary follow-up will be arranged
Patient is being prepared for discharge home. Outpatient follow-up will be arranged. Pulmonary service will now sign off. Thank you for allowing us to be involved in the care of this patient. Please reconsult if there are any additional
questions/concerns, or if patient's respiratory status deteriorates.
Diagnostic Data
Chest X-Ray: 05/05/24- IMPRESSION: No acute pulmonary process identified radiographically.
Cardiac MRI 05/05/24- 1. SEVERE ACUTE MYOCARDITIS with a large amount of left ventricular wall enhancement which is mostly located in the inferior and lateral rodrigues of the left ventricle.
2. Mild acute pericarditis with a small pericardial effusion.
3. Global systolic LV function: Mildly impaired.
4. Global systolic RV function: Normal.
5. Valvular disease: None.
6. SEVERE RIGHT and MODERATE LEFT LOWER LOBE PNEUMONIA.
7. Small bilateral pleural effusions.
CT Scan: CHEST 05/05/24- 1. Severe bronchial wall thickening in both lungs suggesting SEVERE BRONCHITIS.
2. Moderate airspace opacity in the right lower lobe and mild airspace opacity in the left lower lobe most consistent with MODERATE RIGHT LOWER LOBE and MILD LEFT LOWER LOBE PNEUMONIA.
3. Small bilateral pleural effusions.
4. Mild bilateral hilar and subcarinal lymphadenopathy.
[facility] 05/05/24- CONCLUSIONS
1. No obstructive coronary artery disease.
2. Elevated LVEDP at 29 mmHg.
Reports and relevant images were personally reviewed.
Total time spent today was 38 minutes for this encounter. Time includes reviewing laboratory test/imaging results, reviewing pertinent medical records, obtaining and reviewing medical history, performing an appropriate exam, ordering medications,
tests and procedures. Time also includes documentation of this encounter, coordinating patient care and communicating with other healthcare professionals. Total time does not include separately billed tests performed on this date of service.
Subjective Data
-
Date of Service:
Date of Service: May 07, 2024
Chief Complaint: Pulmonary Follow Up
Subjective:
Patient was seen and evaluated today at bedside. Multiple family members at bedside including his mother, Mary. Patient feels well and is eager to be discharged home. BP is 100/57, heart rate 66, and he is saturating 97% on room air. He denies
chest pain, SOB, COOPER, fevers or chills.
Review of Systems
General: Other (Negative unless mentioned above)
Objective Data
Data Reviewed
Vital Signs / I&O / Oxygen:
Vital Signs
Temp Pulse Resp BP Pulse Ox
97.8 F 61 18 109/65 98
05/07/24 08:05 05/07/24 05:45 05/07/24 08:05 05/07/24 05:12 05/07/24 08:05
Intake and Output
05/06/24 05/07/24 05/08/24
06:59 06:59 06:59
Intake Total 480 / 480 480 / 480
Output Total 300 / 300
Balance 180 / 180 480 / 480
SaO2 98
Physical Exam
General: Respiratory Distress (negative), Comfortable, Chills (negative) and Sweats (negative)
HEENT: Normocephalic and Anicteric
Cardiovascular: S1-S2 and Peripheral Edema (negative)
Respiratory: Wheeze (negative), Crackles (Bibasilar), Rhonchi (negative) and Non-Labored Respirations
GI: Soft, Non Distended, Non Tender and Normal Bowel Sounds
Neurology: AO x 3 and Tremors (negative)
Skin: Warm, Dry and Jaundice (negative)
Labs/Micro/Reports
Lab Data
05/07/24 05:08
05/07/24 05:09
Microbiology
05/05/24 17:53 Blood/Venous Blood Culture - Preliminary
No Growth in 24 hours- Final report to follow
05/05/24 15:54 Blood/Venous Blood Culture - Preliminary
No Growth in 24 hours- Final report to follow
05/05/24 15:08 Nose MRSA Screen - Final
Staph aureus MRSA
05/05/24 20:09 Urine Legionella Urinary Antigen - Final
Negative for Legionella pneumophila Serogroup 1 antigen.
A negative result does not rule out the possiblity of
Legionella infection due to other serogroups or species of
Legionella. Clinical correlation is recommended.
05/05/24 20:09 Urine Streptococcus pneumoniae Antigen (M - Final
Negative for Streptococcus pneumoniae antigen.
A negative result does not exclude infection with
Streptococcus pneumoniae. Clinical correlation is
recommended.
05/05/24 15:53 Nasalpharynx Influenza Type A (PCR) - Final
Not Detected
05/05/24 15:53 Nasalpharynx Influenza Type A (H1) (PCR) - Final
Not Detected
05/05/24 15:53 Nasalpharynx Influenza Type A (H3) (PCR) - Final
Not Detected
05/05/24 15:53 Nasalpharynx Influenza Type B (PCR) - Final
Not Detected
05/05/24 15:53 Nasalpharynx Resp Syncytial Virus Type A (PCR) - Final
Not Detected
05/05/24 15:53 Nasalpharynx Resp Syncytial Virus Type B (PCR) - Final
Not Detected
05/05/24 15:53 Nasalpharynx Adenovirus DNA (PCR) - Final
Not Detected
05/05/24 15:53 Nasalpharynx Human Metapneumovirus (PCR) - Final
Not Detected
05/05/24 15:53 Nasalpharynx Parainfluenza Virus Type 1 (PCR) - Final
Not Detected
05/05/24 15:53 Nasalpharynx Parainfluenza Virus Type 2 (PCR) - Final
Not Detected
05/05/24 15:53 Nasalpharynx Parainfluenza Virus Type 3 (PCR) - Final
Not Detected
05/05/24 15:53 Nasalpharynx Parainfluenza Virus Type 4 - Final
Not Detected
05/05/24 15:53 Nasalpharynx Rhinovirus (PCR) - Final
Not Detected
05/05/24 01:00 Nasal Swab Influenza Types A & B (ANN) - Final
Negative for Influenza A & B, NAAT
Negative results must be combined with clinical observations
and patient history.
Nucleic Acid Amplification test (NAAT)performed on the
[employer] platform.
[2024-05-07] MEDS: DELTASONE 50 MG PO (10:10)
[2024-05-07] MEDS: ZESTRIL 2.5 MG PO (10:10)
[2024-05-07] MEDS: COLCHICINE 0.6 MG PO (10:10)
[2024-05-07] MEDS: ZITHROMAX INFUSION 250 IV (10:11)
--- NOTE | 2024-05-07 11:21 | W.PN.ID1 ---
Date of Service
Date of Service: May 07, 2024
Today's Communication
- continue with ceftriaxone and azithromycin - if steroids are continued then will plan 10 day course of antibiotics, on dc can transition to cefdinir 300 mg PO bid and oral azithromycin 250 mg
- would not give flu vaccination before DC
Assessment / Plan
Myocarditis - severe
- blood cultures x2 in progress no growth to date
- enteroviral pcr pending (more sensitive than serology) treatment would be supportive
- has not produced a sputum for culture yet
- HIV screen - patient gives consent, pending
- lyme serology; anaplasma, ehrlichia PCR on blood - no known exposures
- follow fever curve
- agree with colchicine, NSAIDs per cardiology
Community Acquired Pneumonia
- may reveal etiology of secondary myocarditis
- sputum culture if able to obtain
- continue with ceftriaxone and azithromycin - if steroids are continued then will plan 10 day course of antibiotics, on dc can transition to cefdinir 300 mg PO bid and oral azithromycin 250 mg
Chief Complaint
-: Fever and Other (myocarditis)
Subjective / Review of Systems
afebrile
bp stable
Vital Signs / Physical Exam
Vital Signs
Vital Signs
Temp Pulse Resp BP Pulse Ox
97.8 F 61 18 109/65 98
05/07/24 08:05 05/07/24 05:45 05/07/24 08:05 05/07/24 05:12 05/07/24 08:05
Physical Exam
Constitutional: No Acute Distress
Cardiovascular: Regular Rate and S1/S2; Negative Murmur or Rub
Pulmonary: Clear and Symmetric; Negative Wheezes or Rales
Gastrointestinal: Soft, Non Tender, Non Distended and Normal Bowel Sounds
Skin: Warm and Dry; Negative Rash or Jaundice
Objective Data
Lab Data
Lab Results
05/07/24 05:08
05/07/24 05:09
ESR 39 mm/hour (0-20) H 05/06/24 08:59
PT 13.6 Sec (11.4-14.6) 05/05/24 00:32
INR 1.05 05/05/24 00:32
APTT 37.2 Sec (23.4-35.0) H 05/05/24 00:32
Estimated Creat Clear 122 ml/min 05/07/24 05:09
Lactic Acid 0.9 mmol/L (0.7-2.0) 05/05/24 15:51
Total Bilirubin 0.5 mg/dl (0.2-1.3) 05/07/24 05:09
AST 48 U/L (17-59) 05/07/24 05:09
ALT 44 U/L (0-50) 05/07/24 05:09
Alkaline Phosphatase 83 U/L (38-126) 05/07/24 05:09
C-Reactive Protein > 270.00 mg/L (0.0-10.00) H 05/06/24 08:58
Most recent labs reviewed.
Micro Results:
05/05/24 17:53 Blood Culture - Preliminary
Blood/Venous No Growth in 24 hours- Final report to follow
05/05/24 15:54 Blood Culture - Preliminary
Blood/Venous No Growth in 24 hours- Final report to follow
05/05/24 15:08 MRSA Screen - Final
Nose Staph aureus MRSA
05/05/24 20:09 Legionella Urinary Antigen - Final
Urine Negative for Legionella pneumophila Serogroup 1 antigen.
A negative result does not rule out the possiblity of
Legionella infection due to other serogroups or species of
Legionella. Clinical correlation is recommended.
Streptococcus pneumoniae Antigen (M - Final
Negative for Streptococcus pneumoniae antigen.
A negative result does not exclude infection with
Streptococcus pneumoniae. Clinical correlation is
recommended.
05/05/24 15:53 Influenza Type A (PCR) - Final
Nasalpharynx Not Detected
Influenza Type A (H1) (PCR) - Final
Not Detected
Influenza Type A (H3) (PCR) - Final
Not Detected
Influenza Type B (PCR) - Final
Not Detected
Resp Syncytial Virus Type A (PCR) - Final
Not Detected
Resp Syncytial Virus Type B (PCR) - Final
Not Detected
Adenovirus DNA (PCR) - Final
Not Detected
Human Metapneumovirus (PCR) - Final
Not Detected
Parainfluenza Virus Type 1 (PCR) - Final
Not Detected
Parainfluenza Virus Type 2 (PCR) - Final
Not Detected
Parainfluenza Virus Type 3 (PCR) - Final
Not Detected
Parainfluenza Virus Type 4 - Final
Not Detected
Rhinovirus (PCR) - Final
Not Detected
05/05/24 01:00 Influenza Types A & B (ANN) - Final
Nasal Swab Negative for Influenza A & B, NAAT
Negative results must be combined with clinical observations
and patient history.
Nucleic Acid Amplification test (NAAT)performed on the
[employer] platform.
Blood cultures x 2 pending.
--- NOTE | 2024-05-07 11:39 | W.PN.CARDCBS ---
Addendum entered and electronically signed by Cash Tyler MD 05/07/24 13:21:
I saw and evaluated the patient. I reviewed the resident�s note and agree with findings and plan as documented in the resident�s note.
GEN: No distress, awake, Ox3
HEENT: supple, anicteric, mmm
LUNGS: CTA, no wheezes/rales
CV: Reg, S1/S2, no murmur
ABD: soft, BS+, NT/ND
EXT: No edema
NEURO: Gross non-focal
SKIN: No rash
Plan:
Clinically feels well and having no arrhythmias. Ambulating with no discomfort.
Continue colchicine and low-dose lisinopril.
Wean off steroids and continue antibiotics.
Will arrange cardiac follow-up.
Original Note:
Today's Communication / Plan
-
Continue colchicine, and lisinopril
Continue antibiotics
Monitor blood pressure
Steroid taper to off
Impression / Plan
-
Primary Acoustical Carpenter: none prior to admission
Assessment: This is a 23-year-old male with past medical history of asthma, 5 days of resolving URI, who presented to the ED with progressively worsening substernal, pleuritic chest pressure for 2 days. ECG in the ED remarkable for T wave
inversion in lead III and ST elevation in V1 through V6. His initial troponin was 24.4 and peaked at 31.5, chest x-ray was clear. Urgent bedside echocardiography showed normal LV systolic function with no significant pericardial effusion. Patient
received ASA and heparin bolus and was taken to the [facility] with no obstructive coronary artery disease. His lab was also remarkable for elevated CRP. Subsequent EKG was remarkable for sinus tachycardia with ST elevations in lead I, II, aVF,
V4-V6. Cardiology was consulted for further evaluation and management.
Impression:
Presentation with pleuritic chest pain
SOB
Bronchitis/PNA on chest CT
Leukocytosis
Mild transaminitis
Asthma
ECHO 9/27/24: EF preserved, no WMA
Cath 05/05/24: No obstructive CAD, elevated LVEDP 29mmHg
Plan:
Presentation with pleuritic chest pain in the setting of recent viral infection:
-Chest pain resolved. Remained stable on room telemetry
-Cardiac MRI 05/05/2024 with severe acute myocarditis mostly in inferior and lateral rodrigues of LV, small pericardial effusion, severe right and moderate left LL pneumonia.
-Discontinue ibuprofen given that studies have shown increased mortality and enhancement of myocarditic process in patients with myocarditis.
-Will continue colchicine 0.6 mg twice daily for at least 3 months. Discussed with patient and father in the room to abstain from intense sports or cardio exercises for the next 3 months.
-Elevated LVEDP 29 mmHg, follow volume status, may need diuresis.
-Outpatient cardiology follow-up.
SOB
-Resolved
-Chest CT 05/05/2024 with severe bronchitis and B/L pneumonia.
-Defer PNA workup and treatment to ID and primary service.
-Continue antibiotics
Leukocytosis:
-Patient is afebrile, leukocytosis most likely due to steroids.
-Given negative COVID screening, continue steroid taper to off.
Mild transaminitis:
-Resolved.
Data:
Cardiac MRI 05/05/24
1. SEVERE ACUTE MYOCARDITIS with a large amount of left ventricular wall enhancement which is mostly located in the inferior and lateral rodrigues of the left ventricle.
2. Mild acute pericarditis with a small pericardial effusion.
3. Global systolic LV function: Mildly impaired.
4. Global systolic RV function: Normal.
5. Valvular disease: None.
6. SEVERE RIGHT and MODERATE LEFT LOWER LOBE PNEUMONIA.
7. Small bilateral pleural effusions.
Chest X-Ray 05/05/2024:
No acute pulmonary process identified radiographically.
Chest CT Scan 05/05/2024:
1. Severe bronchial wall thickening in both lungs suggesting SEVERE BRONCHITIS.
2. Moderate airspace opacity in the right lower lobe and mild airspace opacity in the left lower lobe most consistent with MODERATE RIGHT LOWER LOBE and MILD LEFT LOWER LOBE PNEUMONIA.
3. Small bilateral pleural effusions.
4. Mild bilateral hilar and subcarinal lymphadenopathy.
[facility] 05/05/24:
1. No obstructive coronary artery disease.
2. Elevated LVEDP at 29 mmHg.
Progress Note - Acoustical Carpenter
Subjective
Date of Service: May 07, 2024
Patient seen and examined in the room with mom at bedside. He is in no acute cardiopulmonary distress, reports no chest pain, shortness of breath, palpitations, fever or chills. Overall he is doing well on both colchicine and lisinopril. However
his blood pressure remain soft at this point, and needs to be monitored closely.
His blood pressure is 99/56, pulse 91, respiratory 18, afebrile, saturating on room air at 98%.
WBC count 18.4, hemoglobin 13.1.
His medications include colchicine 0.6 mg p.o. twice daily, lisinopril 2.5 mg p.o. daily azithromycin 500 mg IV daily, ceftriaxone 2000 mg IV daily, and prednisone 50 mg p.o. daily.
Objective
Labs:
05/07/24 05:08
05/07/24 05:09
Labs
Hgb 13.1 g/dL (13.0-18.0) 05/07/24 05:08
Hct 38.8 % (39.0-52.0) L 05/07/24 05:08
Plt Count 297 10^3/uL (130-400) D 05/07/24 05:08
PT 13.6 Sec (11.4-14.6) 05/05/24 00:32
INR 1.05 05/05/24 00:32
APTT 37.2 Sec (23.4-35.0) H 05/05/24 00:32
Sodium 142 mmol/L (135-145) 05/07/24 05:09
Potassium 5.0 mmol/L (3.5-5.1) 05/07/24 05:09
BUN 16 mg/dl (9-20) 05/07/24 05:09
Creatinine 0.8 mg/dL (0.7-1.3) 05/07/24 05:09
Glucose 118 mg/dl (70-99) H 05/07/24 05:09
Troponins
05/05/24 05/05/24 05/05/24
00:32 03:03 11:04
Troponin I 24.400 H* 31.500 H* D 28.500 H*
05/05/24
18:30
Troponin I Cancelled
Vital Signs and I&O:
Vital Signs
Temp Pulse Resp BP Pulse Ox
97.8 F 61 18 109/65 98
05/07/24 08:05 05/07/24 05:45 05/07/24 08:05 05/07/24 05:12 05/07/24 08:05
Vital Signs
Temp Pulse Resp BP Pulse Ox
97.8 F 61 18 109/65 98
05/07/24 08:05 05/07/24 05:45 05/07/24 08:05 05/07/24 05:12 05/07/24 08:05
Intake & Output
05/05/24 05/06/24 05/07/24 05/08/24
06:59 06:59 06:59 06:59
Intake Total 240 / 240 480 / 480 480 / 480
Output Total 300 / 300
Balance 240 / 240 180 / 180 480 / 480
Physical Exam
Physical Exam
General: Awake, alert and oriented x3, not in distress and holds appropriate conversation.
Neck:Supple, no JVD no bruit no goiter.
Respiratory: Normal AP contour and diameter, normal chest wall movement, normal respiratory effort, no respiratory distress.
Lungs: Good air entry bilaterally, no wheezing or rhonchi, no rales or crackles.
Heart: S1, S2 regular, normal rate, no S3 or S4
Gastrointestinal: Positive bowel sounds, soft, nontender, no guarding or rigidity or organomegaly
Extremities: No pitting edema, good peripheral pulses.
[2024-05-07 12:33] VITALS: BP 94/79
--- NOTE | 2024-05-07 14:22 | W.PN.HOSP.TC ---
Today's Communication/Plan
-
dc to home
Assessment / Plan
Assessment / Plan
CMRI: SEVERE ACUTE MYOCARDITIS with a large amount of left ventricular wall enhancement which is mostly located in the inferior and lateral rodrigues of the left ventricle.
2. Mild acute pericarditis with a small pericardial effusion.
3. Global systolic LV function: Mildly impaired.
4. Global systolic RV function: Normal.
5. Valvular disease: None.
6. SEVERE RIGHT and MODERATE LEFT LOWER LOBE PNEUMONIA.
7. Small bilateral pleural effusions.
Assessment:
Suspected viral myopericarditis
Elevated troponin with concern for STEMI on arrival; s/p urgent cath with nonobstructive disease, nonischemic myocardial injury from possible felipe/pericarditis
- s/p urgent cath with nonobstructive disease, nonischemic myocardial injury from possible felipe/pericarditis; trop peaked 31.5
- cardiac MRI results summarized above
- recent viral illness
- continue Colchicine BID per Cardiology. NSAIDs stopped
- continue cardiomyopathy meds: Lisinopril
- no evidence of unstable rhythms or acute CHF necessitating transfer at this time.
- OP F/u in 2-3 weeks
Transaminitis, acute
- likely from viral illness; hep panel pending
- RUQ US: unremarkable
- trend LFTs, are improving slowly
Severe bronchitis with bilateral pneumonia on CT
Underlying history of lung issues/asthma since (born 29 weeks)
- continue prn inhalers
- continue Rocephin, Azithromycin, day 10/16.
- continue rapid steroid taper at discharge
- ID telephone f/u in 1 week
- pulm f/u in [address]
DVT ppx: Lovenox
Code: Full
More than 30 minutes spent in discharge including
Final examination of the patient
Summarizing hospital stay
Instructions for continuing care to all relevant caregivers
Preparation of discharge records, prescriptions, and referral forms
Total time spent (in minutes):41
Anticipated Discharge: Today
Subjective/Interval History
-
Date of Service: May 07, 2024
feels well , no complaints at present
Sats >96%, and feels comfortable
Objective Data
-
Labs:
Laboratory Results
05/07/24 05/07/24
05:08 05:09
WBC 18.4 H
Hgb 13.1
Hct 38.8 L
Plt Count 297 D
Sodium 142
Potassium 5.0
Chloride 105
Carbon Dioxide 25
BUN 16
Creatinine 0.8
Glucose 118 H
Calcium 9.3
Total Bilirubin 0.5
AST 48
ALT 44
Alkaline Phosphatase 83
Vital Signs:
Vital Signs
Temp Pulse Resp BP Pulse Ox
97.8 F 91 18 99/56 98
05/07/24 08:05 05/07/24 11:45 05/07/24 08:05 05/07/24 08:07 05/07/24 08:05
I&O
05/06/24 05/07/24 05/08/24
06:59 06:59 06:59
Intake Total 480 / 480 480 / 480 480 / 480
Output Total 300 / 300
Balance 180 / 180 480 / 480 480 / 480
Physical Exam
-
General: No Apparent Distress
HEENT: Normocephalic and Atraumatic
Respiratory: Negative Wheezes
Cardiac: Regular Rhythm and S1/S2
GI: Soft and Nontender
Genito-urinary: No Costovertebral Tender
Musculoskeletal: No Edema
Neuro: AO x 3
Hematologic / Lymphatic: No Lymphadenopathy
Psych: Calm
Data Reviewed
-
Total Time Spent with Patient (in minutes): 41
Labs: Labs Reviewed by me
--- NOTE | 2024-05-07 14:27 | PTCARENOTE ---
pt continues to be sr on the monitor, hr in the 80s, vss. pt offers no complaints at this time. pt has been ambulating through the halls. pt educated on plan of care and pt verbalized understanding. call her within reach.
--- NOTE | 2024-05-07 14:32 | W.DS.TRANS ---
DC Summary - St[employer] Side [employer]aster
-
Discharge Instructions:
Discharge Diagnosis/Procedures myopericarditis, pneumonia, chest pain
Diet Regular
Activity No strenuous activity
Bathing Restrictions None
Instructions:
Stand-Alone Forms:
Changes to Home Medications: No
Discharge Medications:
DC Medications w/original date entered in myEDmatch
azithromycin 250 mg tablet 250 mg PO DAILY 8 days #8 tabs 05/07/24
cefdinir 300 mg capsule 300 mg PO BID #16 caps 05/07/24
colchicine 0.6 mg tablet 0.6 mg PO BID #60 tabs 05/07/24
lisinopril 2.5 mg tablet 2.5 mg PO DAILY #30 tabs 05/07/24
prednisone 10 mg tablet 10 mg PO DIRECTED #10 tabs 05/07/24
Home Medication Changes
Pending Results: No
Total time spent discharging patient (in min): 42
[2024-05-07 14:45] VITALS: BP 99/54
--- NOTE | 2024-05-07 17:44 | PTCARENOTE ---
d/c instructions read to pt and pt verbalized understanding. iv and tele removed. pt left with belongings from room, educational material and d/c instructions. pt left via wheelchair with staff member.
[2024-05-08 09:08] LABS: CCP Antibody IgG/IgA 8 Units (0-19)
[2024-05-08 15:41] LABS: Rheumatoid Agglutinin Less Than 10 IU (<10 IU)
[2024-05-08 15:41] LABS: Lyme Antibody Screen, EIA Negative (Negative)
[2024-05-08 21:31] LABS: ds-DNA Ab, IgG Reflex To Titer 0 IU (0-24)
[2024-05-09 13:46] LABS: HIV Combo Negative (Negative)
[2024-05-09 20:41] LABS: Centromere Antibody 3 AU/mL (0-40); Jo-1 Antibodies 35 AU/mL (0-40); SSA 52 (Ro)(ENA) Ab, IgG 17 AU/mL (0-40); SSA 60 (Ro)(ENA) Ab, IgG 12 AU/mL (0-40); SSB (La)(ENA) Ab, IgG 7 AU/mL (0-40); Scleroderma Antibody (Scl-70) 5 AU/mL (0-40)
== END 2024-05-07 17:46 | disposition home or self-care (01) | DRG 286 ==
LOC: IVU 02:38
PROVIDERS: Internal Medicine Critical Care Medicine; ADMITTING PHYSICIAN Internal Medicine; ATTENDING PHYSICIAN Internal Medicine; CONSULT PHYSICIAN Internal Medicine; CONSULT PHYSICIAN Student in an Organized Health Care Education/Training Program; EMERGENCY PHYSICIAN Student in an Organized Health Care Education/Training Program; FAMILY PHYSICIAN Pediatrics; OTHER PHYSICIAN Internal Medicine Interventional Cardiology
PROC: 4A023N7 Measurement of Cardiac Sampling and Pressure, Left Heart, Percutaneous Approach (ICD-10-PCS; 2024-05-05)
PROC: B2111ZZ Fluoroscopy of Multiple Coronary Arteries using Low Osmolar Contrast (ICD-10-PCS; 2024-05-05)
DX: I30.1 Infective pericarditis (principal); J18.9 Pneumonia, unspecified organism; I5A Non-ischemic myocardial injury (non-traumatic); J20.9 Acute bronchitis, unspecified; G47.33 Obstructive sleep apnea (adult) (pediatric); R09.02 Hypoxemia; R13.10 Dysphagia, unspecified; R00.0 Tachycardia, unspecified; R74.01 Elevation of levels of liver transaminase levels
CPT/HCPCS: 71045; 71275; 75561; 76700; 80048; 80053; 80061; 80076; 80306; 80307; 81003; 82550; 82728; 83036; 83516; 83605; 83615; 83735; 83880; 84145; 84443; 84484; 85025; 85027; 85379; 85610; 85652; 85730; 86038; 86140; 86200; 86225; 86235; 86430; 86618; 86658; 86705; 86706; 86709; 86803; 87040; 87070; 87147; 87340; 87389; 87449; 87502; 87633; 87635; 87811; 87899; 93005; 93306; 93458; 94640; 99152; 99153; 99291; A9585; C1894; Q9967

== ENCOUNTER → 2024-09-04 10:30 | Outpatient (REF) | payer OTHER, SELFPAY | LOC: HWRCS 10:30 | PROVIDERS: ATTENDING PHYSICIAN Internal Medicine Interventional Cardiology; FAMILY PHYSICIAN Family Medicine | DX: I51.4 Myocarditis, unspecified (principal) | CPT/HCPCS: 93308 ==